=== PATIENT | female | born 1955 | race Caucasian/White ===

== ENCOUNTER 2018-01-09 10:12 | Outpatient (CLI) | payer MEDICARE, BC ==
[~2018-01-09] VITALS: Ht 149.9 cm; Wt 68.9 kg
[2018-01-09 10:46] LABS: TOTAL HEMOGLOBIN 15.3 G/dl (12.0-16.0)
[2018-01-09] MEDS ORDERED: albuterol 2.5 MG/3 ML nebule NEB PRN (11:00)
== END 2018-01-09 23:59 | disposition home or self-care (01) ==
LOC: RT 10:12
PROVIDERS: ATTEND Internal Medicine Pulmonary Disease
DX: J44.9 Chronic obstructive pulmonary disease, unspecified (principal); F17.200 Nicotine dependence, unspecified, uncomplicated; Z79.899 Other long term (current) drug therapy
CPT/HCPCS: 85018; 94060; 94640; 94727; 94729; 94760

== ENCOUNTER 2018-04-17 00:30 | Inpatient (IN) | payer MEDICARE, BC ==
[~2018-04-17] VITALS: Ht 152.4 cm; Wt 67.1 kg
[2018-04-17] VITALS (22 sets, daily range): BP systolic 102–147; BP diastolic 70–98
[2018-04-17] MEDS ORDERED: acetaminophen 650mg rectal suppository RC PRN (02:20)
[2018-04-17] MEDS ORDERED: ondansetron/PF 4mg/2ml inj IV PRN (02:20)
[2018-04-17] MEDS ORDERED: potassium Cl 40MEQ/250ML bag 250 ML IV PRN (02:20)
[2018-04-17] MEDS: normal saline 1000ml 1,000 ML IV SCH ×3 (02:30→19:36)
[2018-04-17 02:36] LABS: ABG BASE EXCESS -6.8 mmol/L (-2.0-3.0); ABG HCO3 20.7 mmol/L (22.0-26.0); ABG OXYGEN SATURATION 97.9 % (95-98); ABG PCO2 (T) 47.4 mmHg (32.0-45.0); ABG PH (T) 7.253 (7.350-7.450); ABG PO2 (T) 127.4 mmHg (83-108); ALLEN'S TEST Positive; FCOHb 0.3 % (0.5-1.5); FMetHb 0.2 % (0.3-1.12); FO2Hb 97.4 % (94-100); MINUTE VOLUME 7 L/min; PEEP 5 cm H2O; RESPIRATORY RATE 16 b/min; RESPIRATORY RATE (OBSERVED) 16 b/min; TIDAL VOLUME 400 mL; TOTAL HEMOGLOBIN 12.5 G/dl (12.0-16.0)
[2018-04-17] MEDS: ipratropium/albuterol 3ml nebule NEB SCH ×6 (03:00→23:06)
[2018-04-17] MEDS: midazolam 100mg in NS 100ml 100 ML IV PRN (03:27)
[2018-04-17] MEDS: FENTANYL-0.9 % NACL/PF 100 ML IV PRN (03:27)
[2018-04-17 03:40] LABS: BASOPHILS % (AUTO) 0 % (0-1); EOSINOPHILS # (AUTO) 0.2 X10'3 (0-0.9); EOSINOPHILS % (AUTO) 0.7 % (0-6); HEMATOCRIT 33.3 % (35.0-45.0); HEMOGLOBIN 11.1 g/dl (12.0-16.0); LYMPHOCYTES # (AUTO) 0.5 X10'3 (1.1-4.8); LYMPHOCYTES % (AUTO) 2.1 % (21-51); MEAN CORPUSCULAR HEMOGLOBIN 30.4 PG (27.0-31.0); MEAN CORPUSCULAR HGB CONC 33.3 % (33.0-36.5); MEAN CORPUSCULAR VOLUME 91.1 FL (78-98); MEAN PLATELET VOLUME 6.3 FL (7.4-10.4); MONOCYTES % (AUTO) 4.1 % (2-12); NEUTROPHILS # (AUTO) 22.1 X10'3 (1.8-7.7); NEUTROPHILS % (AUTO) 93.1 % (42-75); PLATELET COUNT 368 X10'3 (140-440); RED BLOOD COUNT 3.66 X10'6 (4.20-5.60); RED CELL DISTRIBUTION WIDTH 14.9 % (11.5-14.5); WHITE BLOOD COUNT 23.8 X10'3 (4.5-11.0)
[2018-04-17 03:47] LABS: PROTHROMBIN TIME 11.2 SECONDS (9.0-12.0)
[2018-04-17 03:48] LABS: INR 1.1 INR; PARTIAL THROMBOPLASTIN TIME 36 SECONDS (22-32)
[2018-04-17 03:52] LABS: ALANINE AMINOTRANSFERASE 39 U/L (12-78); ALBUMIN 2.4 G/DL (3.4-5.0); ALBUMIN/GLOBULIN RATIO 0.7 (1.1-1.5); ALKALINE PHOSPHATASE 130 IU/L (46-116); ANION GAP 10 (8-16); ASPARTATE AMINO TRANSFERASE 27 U/L (10-37); BILIRUBIN,TOTAL 0.5 MG/DL (0.1-1.0); BLOOD UREA NITROGEN 11 MG/DL (7-18); BUN/CREATININE RATIO 12.5 (6.6-38.0); CALCIUM 8.3 MG/DL (8.5-10.1); CHLORIDE 98 MMOL/L (99-107); CREATININE 0.88 MG/DL (0.40-0.90); GLUCOSE 130 MG/DL (70-104); MAGNESIUM 1.5 MG/DL (1.5-2.4); POTASSIUM 3.8 MMOL/L (3.5-5.1); SODIUM 133 MMOL/L (135-145); TOTAL CARBON DIOXIDE 25.3 MMOL/L (24-32); TOTAL PROTEIN 5.8 G/DL (6.4-8.2); eGFR 65 ML/MIN
[2018-04-17 04:50] LABS: CLARITY,URINE CLEAR (Clear); COLOR,URINE YELLOW (Yellow); GLUCOSE, URINE 100 mg/dl (Neg); KETONES,URINE TRACE mg/dl (Neg); LEUKOCYTE ESTERASE ,URINE NEGATIVE (Neg); NITRITES, URINE NEGATIVE (Neg); OCCULT BLOOD,URINE SMALL (Neg); PROTEIN,URINE TRACE mg/dl (Neg); UROBILINOGEN,URINE 0.2 E.U/dL (0.2-1.0)
[2018-04-17 05:02] LABS: UA COLLECTION TYPE FOLEY CATH
[2018-04-17 05:04] LABS: BACTERIA,URINE FEW /HPF (Neg); MUCUS STRANDS NONE SEEN /LPF (Neg); SQUAMOUS EPITHELIAL CELL,UR MANY /LPF (FEW)
[2018-04-17 05:05] LABS: TRANSITIONAL EPI CELLS,URINE FEW /HPF
[2018-04-17 05:10] LABS: PLATELET ESTIMATE NORMAL; TOTAL CELLS COUNTED 100; TOXIC GRANULATION 2+
[2018-04-17] MEDS ORDERED: GABA-534 PO (05:27)
[2018-04-17] MEDS ORDERED: VALA100027 PO (05:27)
[2018-04-17] MEDS ORDERED: LIDO700A47 TD (05:27)
[2018-04-17] MEDS ORDERED: FURO40TA4 PO (05:27)
[2018-04-17] MEDS ORDERED: ALBUTEROL IH (05:27)
[2018-04-17] MEDS ORDERED: IRBE75TA30 PO (05:27)
[2018-04-17] MEDS ORDERED: OMEP20TA23 PO (05:27)
[2018-04-17] MEDS ORDERED: MELO-102 PO (05:27)
[2018-04-17] MEDS ORDERED: ONDA4FIL5 PO (05:27)
[2018-04-17] MEDS ORDERED: AMIT-189 PO (05:27)
[2018-04-17] MEDS ORDERED: DULO-31 PO (05:27)
[2018-04-17] MEDS ORDERED: DIAZ5TAB4 PO (05:27)
[2018-04-17] MEDS ORDERED: POTA10TA19 PO (05:27)
[2018-04-17] MEDS ORDERED: levoFLOXACIN-Levaquin 750MG/D5 150 ML IV SCH (08:00)
[2018-04-17] MEDS: K, MAG and/or Phos replacement - Verify level? MC SCH (08:00)
[2018-04-17] MEDS ORDERED: docusate sod 100mg capsule PO SCH (08:00)
[2018-04-17] MEDS ORDERED: docusate sodium 100mg/10ml UD cup PO SCH (08:00)
[2018-04-17] MEDS: losartan 25mg tablet PO SCH (09:58)
[2018-04-17] MEDS: pantoprazole 40 MG vial IV SCH (09:58)
[2018-04-17] MEDS: furosemide 40mg tablet PO SCH ×2 (09:58→12:27)
[2018-04-17] MEDS: enoxaparin 40mg/0.4ml syringe SUBCUT SCH (09:59)
[2018-04-17] MEDS: folic acid inj. 2 MG, thiamine inj. 100 MG, MVI, adult No.4 with vit. K 10 ML in dextro... IV SCH ×4 (12:27)
[2018-04-17] MEDS: methylPREDNISolone sod succ 125mg/2ml vial IV SCH ×2 (12:27→19:36)
[2018-04-17] MEDS: docusate sodium 100mg/10ml UD cup PO SCH (19:36)
[2018-04-18] VITALS (24 sets, daily range): BP systolic 118–144; BP diastolic 70–90
[2018-04-18] MEDS: normal saline 1000ml 1,000 ML IV SCH ×3 (02:52→18:27)
[2018-04-18] MEDS: methylPREDNISolone sod succ 125mg/2ml vial IV SCH ×4 (02:53→20:55)
[2018-04-18] MEDS: ipratropium/albuterol 3ml nebule NEB SCH ×6 (03:25→22:41)
[2018-04-18 03:44] LABS: BASOPHILS % (AUTO) 0 % (0-1); EOSINOPHILS # (AUTO) 0.1 X10'3 (0-0.9); EOSINOPHILS % (AUTO) 1.3 % (0-6); HEMOGLOBIN 9.1 g/dl (12.0-16.0); LYMPHOCYTES # (AUTO) 0.5 X10'3 (1.1-4.8); LYMPHOCYTES % (AUTO) 5.1 % (21-51); MEAN CORPUSCULAR HEMOGLOBIN 30.5 PG (27.0-31.0); MEAN CORPUSCULAR HGB CONC 33.5 % (33.0-36.5); MEAN PLATELET VOLUME 5.9 FL (7.4-10.4); MONOCYTES # (AUTO) 0.2 X10'3 (0-0.9); MONOCYTES % (AUTO) 2.3 % (2-12); NEUTROPHILS # (AUTO) 9.1 X10'3 (1.8-7.7); NEUTROPHILS % (AUTO) 91.3 % (42-75); PLATELET COUNT 348 X10'3 (140-440); RED BLOOD COUNT 2.97 X10'6 (4.20-5.60); RED CELL DISTRIBUTION WIDTH 15.1 % (11.5-14.5)
[2018-04-18 03:55] LABS: ABG BASE EXCESS -2.1 mmol/L (-2.0-3.0); ABG HCO3 20.7 mmol/L (22.0-26.0); ABG OXYGEN SATURATION 94.5 % (95-98); ABG PH (T) 7.485 (7.350-7.450); ABG PO2 (T) 72.7 mmHg (83-108); ALLEN'S TEST Positive; FCOHb 0.3 % (0.5-1.5); FMetHb 0.1 % (0.3-1.12); FO2Hb 94.1 % (94-100); MINUTE VOLUME 8 L/min; PATIENT TEMPERATURE 36.4; PEEP 5 cm H2O; RESPIRATORY RATE 18 b/min; RESPIRATORY RATE (OBSERVED) 20 b/min; TIDAL VOLUME 400 mL; TOTAL HEMOGLOBIN 10.2 G/dl (12.0-16.0)
[2018-04-18 03:59] LABS: ALANINE AMINOTRANSFERASE 30 U/L (12-78); ALBUMIN 1.9 G/DL (3.4-5.0); ALBUMIN/GLOBULIN RATIO 0.6 (1.1-1.5); ALKALINE PHOSPHATASE 112 IU/L (46-116); ANION GAP 12 (8-16); ASPARTATE AMINO TRANSFERASE 24 U/L (10-37); BILIRUBIN,TOTAL 0.4 MG/DL (0.1-1.0); BLOOD UREA NITROGEN 12 MG/DL (7-18); BUN/CREATININE RATIO 14.6 (6.6-38.0); CALCIUM 8.3 MG/DL (8.5-10.1); CHLORIDE 100 MMOL/L (99-107); CREATININE 0.82 MG/DL (0.40-0.90); GLUCOSE 156 MG/DL (70-104); MAGNESIUM 1.1 MG/DL (1.5-2.4); PHOSPHORUS 1.7 MG/DL (2.3-4.5); SODIUM 136 MMOL/L (135-145); TOTAL CARBON DIOXIDE 24.4 MMOL/L (24-32); TOTAL PROTEIN 4.9 G/DL (6.4-8.2); eGFR 71 ML/MIN
[2018-04-18 04:28] LABS: POTASSIUM 2.3 MMOL/L (3.5-5.1)
[2018-04-18 04:29] LABS: INR 1.1 INR; PARTIAL THROMBOPLASTIN TIME 34 SECONDS (22-32); PROTHROMBIN TIME 10.7 SECONDS (9.0-12.0)
[2018-04-18] MEDS: potassium Cl 40MEQ/250ML bag 250 ML IV PRN ×4 (05:08→17:10)
[2018-04-18] MEDS: FENTANYL-0.9 % NACL/PF 100 ML IV PRN ×2 (05:08→22:11)
[2018-04-18] MEDS: CefTRIAXone/D5W-Rocephin 1gm 50 ML IV SCH (07:31)
[2018-04-18] MEDS: losartan 25mg tablet PO SCH (07:31)
[2018-04-18] MEDS: mineral oil/petrolatum ophthal oint EACHEYE SCH ×3 (07:31→20:55)
[2018-04-18] MEDS: furosemide 40mg tablet PO SCH ×2 (07:31→13:41)
[2018-04-18] MEDS: docusate sodium 100mg/10ml UD cup PO SCH ×2 (07:31→20:54)
[2018-04-18] MEDS: azithromycin/NS 500mg/250ml 250 ML IV SCH (07:31)
[2018-04-18] MEDS: pantoprazole 40 MG vial IV SCH (07:31)
[2018-04-18] MEDS: folic acid inj. 2 MG, thiamine inj. 100 MG, MVI, adult No.4 with vit. K 10 ML in dextro... IV SCH ×4 (07:31)
[2018-04-18] MEDS: enoxaparin 40mg/0.4ml syringe SUBCUT SCH (07:32)
[2018-04-18] MEDS: K, MAG and/or Phos replacement - Verify level? MC SCH (08:00)
[2018-04-18] MEDS: midazolam 100mg in NS 100ml 100 ML IV PRN (08:07)
[2018-04-18] MEDS: dexmedetomidin/NS 400mcg/100ml 100 ML IV SCH ×2 (09:54→22:12)
[2018-04-18] MEDS ORDERED: chlordiazePOXIDE 25mg capsule OGT PRN (10:20)
[2018-04-18 10:21] LABS: PREALBUMIN 12.7 MG/DL (19-36)
[2018-04-18] MEDS: nystatin 15 GM powder TP SCH ×2 (13:41→20:55)
[2018-04-18] MEDS ORDERED: dextrose 50%-water 50ml dispensing syringe IV PRN ×2 (14:35)
[2018-04-18] MEDS ORDERED: dextrose ORAL solution 15 GM/59 ML bottle PO PRN ×2 (14:35)
[2018-04-18] MEDS ORDERED: glucagon, human recombinant 1mg kit SUBCUT PRN (14:35)
[2018-04-18] MEDS: lactobacillus rhamnosus 10,000 MMU CELLS/CAPSULE PO SCH (20:55)
[2018-04-18] MEDS: insulin regular, human vial - multi-dose SQ SCH (20:59)
[2018-04-19] VITALS (25 sets, daily range): BP systolic 140–168; BP diastolic 82–108
[2018-04-19] MEDS: mineral oil/petrolatum ophthal oint EACHEYE SCH ×4 (02:47→20:53)
[2018-04-19] MEDS: methylPREDNISolone sod succ 125mg/2ml vial IV SCH ×2 (02:47→08:05)
[2018-04-19] MEDS: insulin regular, human vial - multi-dose SQ SCH ×4 (02:50→21:01)
[2018-04-19] MEDS: ipratropium/albuterol 3ml nebule NEB SCH ×6 (02:52→22:33)
[2018-04-19] MEDS: normal saline 1000ml 1,000 ML IV SCH ×2 (03:05→10:27)
[2018-04-19 03:31] LABS: ABG BASE EXCESS -4.2 mmol/L (-2.0-3.0); ABG HCO3 19.8 mmol/L (22.0-26.0); ABG PCO2 (T) 33.3 mmHg (32.0-45.0); ABG PH (T) 7.395 (7.350-7.450); ABG PO2 (T) 91.4 mmHg (83-108); ALLEN'S TEST Positive; FCOHb 0.3 % (0.5-1.5); FMetHb 0.3 % (0.3-1.12); FO2Hb 95.4 % (94-100); MINUTE VOLUME 8 L/min; PATIENT TEMPERATURE 37.4; PEEP 5 cm H2O; RESPIRATORY RATE 16 b/min; RESPIRATORY RATE (OBSERVED) 19 b/min; TIDAL VOLUME 400 mL; TOTAL HEMOGLOBIN 10.8 G/dl (12.0-16.0)
[2018-04-19 05:10] LABS: BASOPHILS % (AUTO) 0 % (0-1); EOSINOPHILS % (AUTO) 0 % (0-6); HEMATOCRIT 28.9 % (35.0-45.0); HEMOGLOBIN 9.7 g/dl (12.0-16.0); LYMPHOCYTES # (AUTO) 0.4 X10'3 (1.1-4.8); LYMPHOCYTES % (AUTO) 4.3 % (21-51); MEAN CORPUSCULAR HEMOGLOBIN 30.6 PG (27.0-31.0); MEAN CORPUSCULAR HGB CONC 33.5 % (33.0-36.5); MEAN CORPUSCULAR VOLUME 91.4 FL (78-98); MEAN PLATELET VOLUME 6.4 FL (7.4-10.4); MONOCYTES # (AUTO) 0.3 X10'3 (0-0.9); MONOCYTES % (AUTO) 2.5 % (2-12); NEUTROPHILS # (AUTO) 9.3 X10'3 (1.8-7.7); NEUTROPHILS % (AUTO) 93.2 % (42-75); PLATELET COUNT 373 X10'3 (140-440); RED BLOOD COUNT 3.16 X10'6 (4.20-5.60); RED CELL DISTRIBUTION WIDTH 15.7 % (11.5-14.5)
[2018-04-19] MEDS: midazolam 100mg in NS 100ml 100 ML IV PRN (05:31)
[2018-04-19 05:37] LABS: INR 1.1 INR; PARTIAL THROMBOPLASTIN TIME 27 SECONDS (22-32); PROTHROMBIN TIME 10.8 SECONDS (9.0-12.0)
[2018-04-19 05:43] LABS: ALANINE AMINOTRANSFERASE 34 U/L (12-78); ALBUMIN 2.2 G/DL (3.4-5.0); ALBUMIN/GLOBULIN RATIO 0.6 (1.1-1.5); ALKALINE PHOSPHATASE 114 IU/L (46-116); ANION GAP 15 (8-16); ASPARTATE AMINO TRANSFERASE 23 U/L (10-37); BILIRUBIN,TOTAL 0.4 MG/DL (0.1-1.0); BLOOD UREA NITROGEN 15 MG/DL (7-18); BUN/CREATININE RATIO 16.9 (6.6-38.0); CALCIUM 8.4 MG/DL (8.5-10.1); CHLORIDE 103 MMOL/L (99-107); CREATININE 0.89 MG/DL (0.40-0.90); GLUCOSE 168 MG/DL (70-104); PHOSPHORUS 2.4 MG/DL (2.3-4.5); POTASSIUM 3.9 MMOL/L (3.5-5.1); SODIUM 140 MMOL/L (135-145); TOTAL CARBON DIOXIDE 22.1 MMOL/L (24-32); TOTAL PROTEIN 5.6 G/DL (6.4-8.2); eGFR 64 ML/MIN
[2018-04-19] MEDS: FENTANYL-0.9 % NACL/PF 100 ML IV PRN (07:18)
[2018-04-19] MEDS: dexmedetomidin/NS 400mcg/100ml 100 ML IV SCH ×2 (07:19→16:17)
[2018-04-19] MEDS: K, MAG and/or Phos replacement - Verify level? MC SCH (08:00)
[2018-04-19] MEDS: enoxaparin 40mg/0.4ml syringe SUBCUT SCH (08:03)
[2018-04-19] MEDS: pantoprazole 40 MG vial IV SCH (08:03)
[2018-04-19] MEDS: lactobacillus rhamnosus 10,000 MMU CELLS/CAPSULE PO SCH ×2 (08:04→20:53)
[2018-04-19] MEDS: azithromycin/NS 500mg/250ml 250 ML IV SCH (08:04)
[2018-04-19] MEDS: CefTRIAXone/D5W-Rocephin 1gm 50 ML IV SCH (08:05)
[2018-04-19] MEDS: furosemide 40mg tablet PO SCH ×2 (08:06→12:36)
[2018-04-19] MEDS: losartan 25mg tablet PO SCH (08:06)
[2018-04-19] MEDS: docusate sodium 100mg/10ml UD cup PO SCH ×2 (08:13→20:53)
[2018-04-19] MEDS: nystatin 15 GM powder TP SCH ×3 (08:27→20:53)
[2018-04-19] MEDS ORDERED: magnesium 4gm in 100ml NS 100 ML IV ONE (09:20)
[2018-04-19] MEDS: chlordiazePOXIDE 25mg capsule OGT SCH ×2 (10:24→15:54)
[2018-04-19] MEDS: folic acid inj. 2 MG, thiamine inj. 100 MG, MVI, adult No.4 with vit. K 10 ML in dextro... IV SCH ×4 (10:26)
[2018-04-19] MEDS: methylPREDNISolone sod succ/PF 40mg inj. IV SCH ×2 (14:20→20:53)
[2018-04-19] MEDS: insulin glargine (Lantus) pen - multi-dose SQ SCH (21:02)
[2018-04-20] VITALS (24 sets, daily range): BP systolic 125–179; BP diastolic 82–103
[2018-04-20] MEDS: chlordiazePOXIDE 25mg capsule OGT SCH ×3 (00:12→16:39)
[2018-04-20] MEDS: mineral oil/petrolatum ophthal oint EACHEYE SCH ×4 (02:16→19:32)
[2018-04-20] MEDS: methylPREDNISolone sod succ/PF 40mg inj. IV SCH ×4 (02:16→19:32)
[2018-04-20] MEDS: insulin regular, human vial - multi-dose SQ SCH ×2 (02:19→09:15)
[2018-04-20] MEDS: dexmedetomidin/NS 400mcg/100ml 100 ML IV SCH ×2 (02:21→15:54)
[2018-04-20] MEDS: ipratropium/albuterol 3ml nebule NEB SCH ×4 (02:37→20:03)
[2018-04-20 03:16] LABS: ABG HCO3 21.7 mmol/L (22.0-26.0); ABG PCO2 (T) 29.8 mmHg (32.0-45.0); ABG PH (T) 7.481 (7.350-7.450); ABG PO2 (T) 81.2 mmHg (83-108); ALLEN'S TEST Positive; FCOHb 0.3 % (0.5-1.5); FMetHb 0.1 % (0.3-1.12); FO2Hb 94.6 % (94-100); MINUTE VOLUME 7 L/min; PATIENT TEMPERATURE 37.4; PEEP 5 cm H2O; RESPIRATORY RATE 0 b/min; RESPIRATORY RATE (OBSERVED) 16 b/min; TIDAL VOLUME 461 mL; TOTAL HEMOGLOBIN 10.5 G/dl (12.0-16.0)
[2018-04-20 04:10] LABS: BASOPHILS % (AUTO) 0 % (0-1); EOSINOPHILS # (AUTO) 0.2 X10'3 (0-0.9); EOSINOPHILS % (AUTO) 1.3 % (0-6); HEMATOCRIT 28.7 % (35.0-45.0); HEMOGLOBIN 9.5 g/dl (12.0-16.0); LYMPHOCYTES # (AUTO) 0.7 X10'3 (1.1-4.8); LYMPHOCYTES % (AUTO) 5.1 % (21-51); MEAN CORPUSCULAR HEMOGLOBIN 30.3 PG (27.0-31.0); MEAN CORPUSCULAR HGB CONC 33.1 % (33.0-36.5); MEAN CORPUSCULAR VOLUME 91.6 FL (78-98); MEAN PLATELET VOLUME 6.1 FL (7.4-10.4); MONOCYTES # (AUTO) 0.4 X10'3 (0-0.9); MONOCYTES % (AUTO) 2.9 % (2-12); NEUTROPHILS # (AUTO) 13.2 X10'3 (1.8-7.7); NEUTROPHILS % (AUTO) 90.7 % (42-75); PLATELET COUNT 333 X10'3 (140-440); RED BLOOD COUNT 3.13 X10'6 (4.20-5.60); RED CELL DISTRIBUTION WIDTH 15.4 % (11.5-14.5); WHITE BLOOD COUNT 14.5 X10'3 (4.5-11.0)
[2018-04-20 04:24] LABS: ALANINE AMINOTRANSFERASE 33 U/L (12-78); ALBUMIN 2.3 G/DL (3.4-5.0); ALBUMIN/GLOBULIN RATIO 0.7 (1.1-1.5); ALKALINE PHOSPHATASE 102 IU/L (46-116); ANION GAP 12 (8-16); ASPARTATE AMINO TRANSFERASE 19 U/L (10-37); BILIRUBIN,TOTAL 0.4 MG/DL (0.1-1.0); BLOOD UREA NITROGEN 26 MG/DL (7-18); BUN/CREATININE RATIO 30.2 (6.6-38.0); CALCIUM 8.9 MG/DL (8.5-10.1); CHLORIDE 100 MMOL/L (99-107); CREATININE 0.86 MG/DL (0.40-0.90); GLUCOSE 203 MG/DL (70-104); MAGNESIUM 1.4 MG/DL (1.5-2.4); SODIUM 139 MMOL/L (135-145); TOTAL CARBON DIOXIDE 27.3 MMOL/L (24-32); TOTAL PROTEIN 5.6 G/DL (6.4-8.2); eGFR 67 ML/MIN
[2018-04-20 04:32] LABS: POTASSIUM 2.3 MMOL/L (3.5-5.1)
[2018-04-20 04:35] LABS: INR 1.1 INR; PARTIAL THROMBOPLASTIN TIME 23 SECONDS (22-32); PROTHROMBIN TIME 10.7 SECONDS (9.0-12.0)
[2018-04-20] MEDS: potassium Cl 40MEQ/250ML bag 250 ML IV PRN ×4 (04:52→17:44)
[2018-04-20] MEDS: normal saline 1000ml 1,000 ML IV SCH (05:00)
[2018-04-20] MEDS: FENTANYL-0.9 % NACL/PF 100 ML IV PRN (07:35)
[2018-04-20] MEDS: docusate sodium 100mg/10ml UD cup PO SCH ×2 (07:50→20:00)
[2018-04-20] MEDS: pantoprazole 40 MG vial IV SCH (07:50)
[2018-04-20] MEDS: furosemide 40mg tablet PO SCH ×2 (07:50→12:30)
[2018-04-20] MEDS: enoxaparin 40mg/0.4ml syringe SUBCUT SCH (07:51)
[2018-04-20] MEDS: lactobacillus rhamnosus 10,000 MMU CELLS/CAPSULE PO SCH ×2 (07:51→20:00)
[2018-04-20] MEDS: losartan 25mg tablet PO SCH (07:51)
[2018-04-20] MEDS: CefTRIAXone/D5W-Rocephin 1gm 50 ML IV SCH (07:51)
[2018-04-20] MEDS: azithromycin/NS 500mg/250ml 250 ML IV SCH (07:51)
[2018-04-20] MEDS: nystatin 15 GM powder TP SCH ×3 (07:54→21:46)
[2018-04-20] MEDS: K, MAG and/or Phos replacement - Verify level? MC SCH (08:00)
[2018-04-20] MEDS ORDERED: ipratropium/albuterol 3ml nebule NEB PRN (10:05)
[2018-04-20] MEDS ORDERED: racepinephrine 11.25mg/0.5ml nebule NEB PRN (10:05)
[2018-04-20] MEDS: folic acid inj. 2 MG, thiamine inj. 100 MG, MVI, adult No.4 with vit. K 10 ML in dextro... IV SCH ×4 (10:15)
[2018-04-20] MEDS: potassium Cl oral solution 20 MEQ/15 ML PO SCH ×2 (14:00→20:00)
[2018-04-20] MEDS: LORazepam 2 mg/ml vial IV PRN (20:37)
[2018-04-20] MEDS: HYDROmorphone 1 mg/ml syringe IV PRN (21:46)
[2018-04-20] MEDS: insulin glargine (Lantus) pen - multi-dose SQ SCH (21:52)
[2018-04-21] VITALS (24 sets, daily range): BP systolic 118–152; BP diastolic 71–93
[2018-04-21] MEDS: mineral oil/petrolatum ophthal oint EACHEYE SCH ×2 (00:19→07:52)
[2018-04-21] MEDS: potassium Cl oral solution 20 MEQ/15 ML PO SCH ×4 (02:00→20:00)
[2018-04-21] MEDS: normal saline 1000ml 1,000 ML IV SCH ×2 (02:14→21:00)
[2018-04-21] MEDS: methylPREDNISolone sod succ/PF 40mg inj. IV SCH ×4 (02:14→20:00)
[2018-04-21] MEDS: ipratropium/albuterol 3ml nebule NEB SCH ×4 (02:34→20:58)
[2018-04-21 03:02] LABS: BASOPHILS % (AUTO) 0.2 % (0-1); EOSINOPHILS # (AUTO) 0.1 X10'3 (0-0.9); EOSINOPHILS % (AUTO) 1.1 % (0-6); HEMATOCRIT 29.4 % (35.0-45.0); HEMOGLOBIN 9.7 g/dl (12.0-16.0); LYMPHOCYTES # (AUTO) 0.7 X10'3 (1.1-4.8); LYMPHOCYTES % (AUTO) 5.2 % (21-51); MEAN CORPUSCULAR HEMOGLOBIN 30.7 PG (27.0-31.0); MEAN CORPUSCULAR HGB CONC 33.1 % (33.0-36.5); MEAN CORPUSCULAR VOLUME 92.7 FL (78-98); MEAN PLATELET VOLUME 5.9 FL (7.4-10.4); MONOCYTES # (AUTO) 0.2 X10'3 (0-0.9); MONOCYTES % (AUTO) 1.8 % (2-12); NEUTROPHILS # (AUTO) 12.3 X10'3 (1.8-7.7); NEUTROPHILS % (AUTO) 91.7 % (42-75); PLATELET COUNT 284 X10'3 (140-440); RED BLOOD COUNT 3.17 X10'6 (4.20-5.60); WHITE BLOOD COUNT 13.4 X10'3 (4.5-11.0)
[2018-04-21 03:11] LABS: ALANINE AMINOTRANSFERASE 40 U/L (12-78); ALBUMIN 2.4 G/DL (3.4-5.0); ALBUMIN/GLOBULIN RATIO 0.8 (1.1-1.5); ALKALINE PHOSPHATASE 93 IU/L (46-116); ANION GAP 9 (8-16); ASPARTATE AMINO TRANSFERASE 25 U/L (10-37); BILIRUBIN,TOTAL 0.4 MG/DL (0.1-1.0); BLOOD UREA NITROGEN 28 MG/DL (7-18); BUN/CREATININE RATIO 38.9 (6.6-38.0); CALCIUM 8.8 MG/DL (8.5-10.1); CHLORIDE 103 MMOL/L (99-107); CREATININE 0.72 MG/DL (0.40-0.90); GLUCOSE 143 MG/DL (70-104); MAGNESIUM 1.2 MG/DL (1.5-2.4); PHOSPHORUS 3.8 MG/DL (2.3-4.5); POTASSIUM 4.6 MMOL/L (3.5-5.1); SODIUM 141 MMOL/L (135-145); TOTAL CARBON DIOXIDE 28.8 MMOL/L (24-32); TOTAL PROTEIN 5.5 G/DL (6.4-8.2); eGFR 82 ML/MIN
[2018-04-21 03:25] LABS: PROTHROMBIN TIME 11.3 SECONDS (9.0-12.0)
[2018-04-21 03:26] LABS: INR 1.1 INR; PARTIAL THROMBOPLASTIN TIME 24 SECONDS (22-32)
[2018-04-21] MEDS: HYDROmorphone 1 mg/ml syringe IV PRN ×3 (03:29→16:57)
[2018-04-21] MEDS: LORazepam 2 mg/ml vial IV PRN (07:19)
[2018-04-21] MEDS: furosemide 40mg tablet PO SCH ×2 (07:30→14:30)
[2018-04-21] MEDS: CefTRIAXone/D5W-Rocephin 1gm 50 ML IV SCH (07:51)
[2018-04-21] MEDS: pantoprazole 40 MG vial IV SCH (07:51)
[2018-04-21] MEDS: enoxaparin 40mg/0.4ml syringe SUBCUT SCH (07:52)
[2018-04-21] MEDS: chlordiazePOXIDE 25mg capsule OGT SCH ×4 (08:00→23:52)
[2018-04-21] MEDS: K, MAG and/or Phos replacement - Verify level? MC SCH (08:39)
[2018-04-21] MEDS: azithromycin/NS 500mg/250ml 250 ML IV SCH (08:42)
[2018-04-21] MEDS: folic acid inj. 2 MG, thiamine inj. 100 MG, MVI, adult No.4 with vit. K 10 ML in dextro... IV SCH ×4 (09:52)
[2018-04-21] MEDS: nystatin 15 GM powder TP SCH ×3 (09:52→21:00)
[2018-04-21] MEDS: lactobacillus rhamnosus 10,000 MMU CELLS/CAPSULE PO SCH ×2 (14:30→20:00)
[2018-04-21] MEDS: docusate sodium 100mg/10ml UD cup PO SCH ×2 (14:30→20:00)
[2018-04-21] MEDS: losartan 25mg tablet PO SCH (14:31)
[2018-04-21] MEDS: insulin glargine (Lantus) pen - multi-dose SQ SCH (21:00)
[2018-04-22] VITALS (24 sets, daily range): BP systolic 108–162; BP diastolic 59–97
[2018-04-22] MEDS: methylPREDNISolone sod succ/PF 40mg inj. IV SCH ×3 (01:36→20:04)
[2018-04-22] MEDS: potassium Cl oral solution 20 MEQ/15 ML PO SCH ×4 (01:36→20:04)
[2018-04-22] MEDS: HYDROmorphone 1 mg/ml syringe IV PRN ×3 (01:37→18:50)
[2018-04-22] MEDS: ipratropium/albuterol 3ml nebule NEB SCH ×4 (02:53→20:38)
[2018-04-22 05:25] LABS: BASOPHILS % (AUTO) 0 % (0-1); EOSINOPHILS % (AUTO) 0 % (0-6); HEMATOCRIT 29.5 % (35.0-45.0); HEMOGLOBIN 9.6 g/dl (12.0-16.0); LYMPHOCYTES # (AUTO) 0.6 X10'3 (1.1-4.8); LYMPHOCYTES % (AUTO) 5.1 % (21-51); MEAN CORPUSCULAR HEMOGLOBIN 30.3 PG (27.0-31.0); MEAN CORPUSCULAR HGB CONC 32.6 % (33.0-36.5); MEAN CORPUSCULAR VOLUME 93.1 FL (78-98); MEAN PLATELET VOLUME 6.8 FL (7.4-10.4); MONOCYTES # (AUTO) 0.3 X10'3 (0-0.9); MONOCYTES % (AUTO) 2.3 % (2-12); NEUTROPHILS % (AUTO) 92.6 % (42-75); PLATELET COUNT 303 X10'3 (140-440); RED BLOOD COUNT 3.17 X10'6 (4.20-5.60); RED CELL DISTRIBUTION WIDTH 15.6 % (11.5-14.5); WHITE BLOOD COUNT 11.8 X10'3 (4.5-11.0)
[2018-04-22 05:39] LABS: ALANINE AMINOTRANSFERASE 79 U/L (12-78); ALBUMIN 2.5 G/DL (3.4-5.0); ALBUMIN/GLOBULIN RATIO 0.9 (1.1-1.5); ALKALINE PHOSPHATASE 97 IU/L (46-116); ANION GAP 10 (8-16); ASPARTATE AMINO TRANSFERASE 52 U/L (10-37); BILIRUBIN,TOTAL 0.5 MG/DL (0.1-1.0); BLOOD UREA NITROGEN 25 MG/DL (7-18); BUN/CREATININE RATIO 34.2 (6.6-38.0); CALCIUM 8.4 MG/DL (8.5-10.1); CHLORIDE 103 MMOL/L (99-107); CREATININE 0.73 MG/DL (0.40-0.90); GLUCOSE 135 MG/DL (70-104); MAGNESIUM 1.1 MG/DL (1.5-2.4); PHOSPHORUS 3.9 MG/DL (2.3-4.5); POTASSIUM 4.5 MMOL/L (3.5-5.1); SODIUM 142 MMOL/L (135-145); TOTAL CARBON DIOXIDE 29.3 MMOL/L (24-32); TOTAL PROTEIN 5.4 G/DL (6.4-8.2); eGFR 81 ML/MIN
[2018-04-22] MEDS: docusate sodium 100mg/10ml UD cup PO SCH ×2 (07:36→20:04)
[2018-04-22] MEDS: chlordiazePOXIDE 25mg capsule OGT SCH ×3 (07:36→23:42)
[2018-04-22] MEDS: lactobacillus rhamnosus 10,000 MMU CELLS/CAPSULE PO SCH ×2 (07:36→20:04)
[2018-04-22] MEDS: furosemide 40mg tablet PO SCH ×2 (07:36→12:01)
[2018-04-22] MEDS: losartan 25mg tablet PO SCH (07:36)
[2018-04-22] MEDS: nystatin 15 GM powder TP SCH ×3 (07:37→21:45)
[2018-04-22] MEDS: pantoprazole 40 MG vial IV SCH (07:37)
[2018-04-22] MEDS: enoxaparin 40mg/0.4ml syringe SUBCUT SCH (07:37)
[2018-04-22] MEDS: K, MAG and/or Phos replacement - Verify level? MC SCH (07:38)
[2018-04-22] MEDS: folic acid inj. 2 MG, thiamine inj. 100 MG, MVI, adult No.4 with vit. K 10 ML in dextro... IV SCH ×4 (07:43)
[2018-04-22] MEDS ORDERED: potassium Cl 20 mEq SR tablet PO PRN ×3 (08:50→10:45)
[2018-04-22] MEDS ORDERED: magnesium Cl slow-release 64mg tablet PO PRN (10:45)
[2018-04-22] MEDS ORDERED: magnesium 1gm/100ml D5W IVPB 100 ML IV PRN (10:45)
[2018-04-22] MEDS ORDERED: potassium Cl 40MEQ/NS 500ml 500 ML IV PRN ×2 (10:45)
[2018-04-22] MEDS: magnesium 4gm in 100ml NS 100 ML IV PRN (12:01)
[2018-04-22] MEDS: thiamine 100mg tablet PO SCH (20:04)
[2018-04-22] MEDS: insulin glargine (Lantus) pen - multi-dose SQ SCH (21:00)
[2018-04-23] VITALS (22 sets, daily range): BP systolic 115–158; BP diastolic 62–89
[2018-04-23] MEDS: potassium Cl oral solution 20 MEQ/15 ML PO SCH ×4 (02:23→20:04)
[2018-04-23] MEDS: ipratropium/albuterol 3ml nebule NEB SCH ×4 (02:51→20:26)
[2018-04-23 05:58] LABS: BASOPHILS % (AUTO) 0.1 % (0-1); EOSINOPHILS % (AUTO) 0 % (0-6); HEMATOCRIT 29.6 % (35.0-45.0); HEMOGLOBIN 9.8 g/dl (12.0-16.0); LYMPHOCYTES # (AUTO) 0.5 X10'3 (1.1-4.8); LYMPHOCYTES % (AUTO) 4.9 % (21-51); MEAN CORPUSCULAR HEMOGLOBIN 30.3 PG (27.0-31.0); MEAN CORPUSCULAR VOLUME 91.8 FL (78-98); MEAN PLATELET VOLUME 6.9 FL (7.4-10.4); MONOCYTES # (AUTO) 0.5 X10'3 (0-0.9); MONOCYTES % (AUTO) 4.6 % (2-12); NEUTROPHILS # (AUTO) 9.7 X10'3 (1.8-7.7); NEUTROPHILS % (AUTO) 90.4 % (42-75); PLATELET COUNT 294 X10'3 (140-440); RED BLOOD COUNT 3.23 X10'6 (4.20-5.60); RED CELL DISTRIBUTION WIDTH 15.8 % (11.5-14.5); WHITE BLOOD COUNT 10.7 X10'3 (4.5-11.0)
[2018-04-23 06:33] LABS: ALANINE AMINOTRANSFERASE 82 U/L (12-78); ALBUMIN 2.5 G/DL (3.4-5.0); ALBUMIN/GLOBULIN RATIO 0.9 (1.1-1.5); ALKALINE PHOSPHATASE 104 IU/L (46-116); ANION GAP 4 (8-16); ASPARTATE AMINO TRANSFERASE 35 U/L (10-37); BILIRUBIN,TOTAL 0.5 MG/DL (0.1-1.0); BLOOD UREA NITROGEN 20 MG/DL (7-18); BUN/CREATININE RATIO 26.3 (6.6-38.0); CALCIUM 8.9 MG/DL (8.5-10.1); CHLORIDE 102 MMOL/L (99-107); CREATININE 0.76 MG/DL (0.40-0.90); GLUCOSE 193 MG/DL (70-104); MAGNESIUM 1.4 MG/DL (1.5-2.4); PHOSPHORUS 2.9 MG/DL (2.3-4.5); POTASSIUM 4.2 MMOL/L (3.5-5.1); SODIUM 139 MMOL/L (135-145); TOTAL CARBON DIOXIDE 32.6 MMOL/L (24-32); TOTAL PROTEIN 5.4 G/DL (6.4-8.2); eGFR 77 ML/MIN
[2018-04-23] MEDS: lactobacillus rhamnosus 10,000 MMU CELLS/CAPSULE PO SCH ×2 (07:44→20:03)
[2018-04-23] MEDS: thiamine 100mg tablet PO SCH ×2 (07:44→20:22)
[2018-04-23] MEDS: docusate sodium 100mg/10ml UD cup PO SCH ×2 (07:44→20:04)
[2018-04-23] MEDS: pantoprazole 40 MG vial IV SCH (07:44)
[2018-04-23] MEDS: losartan 25mg tablet PO SCH (07:44)
[2018-04-23] MEDS: chlordiazePOXIDE 25mg capsule OGT SCH (07:44)
[2018-04-23] MEDS: furosemide 40mg tablet PO SCH ×2 (07:44→13:33)
[2018-04-23] MEDS: folic acid/vitamin B complex w/vitamin C 0.8mg tablet PO SCH (07:44)
[2018-04-23] MEDS: methylPREDNISolone sod succ/PF 40mg inj. IV SCH ×2 (07:44→20:04)
[2018-04-23] MEDS: enoxaparin 40mg/0.4ml syringe SUBCUT SCH (07:45)
[2018-04-23] MEDS: K and/or MAG REPLACEMENT MC SCH (07:46)
[2018-04-23] MEDS ORDERED: K and/or MAG REPLACEMENT MC SCH (08:00)
[2018-04-23] MEDS: nystatin 15 GM powder TP SCH ×3 (08:02→20:13)
[2018-04-23] MEDS ORDERED: iohexol 300mg/ml 100ml inj. ONE ×2 (10:27→11:22)
[2018-04-23] MEDS: acetaminophen 325mg tablet PO PRN ×2 (13:34→20:04)
[2018-04-23] MEDS: insulin regular, human vial - multi-dose SQ SCH ×2 (15:25→20:11)
[2018-04-23] MEDS ORDERED: chlordiazePOXIDE 25mg capsule OGT PRN (16:00)
[2018-04-23] MEDS: insulin glargine (Lantus) pen - multi-dose SQ SCH (20:12)
[2018-04-24] VITALS (24 sets, daily range): BP systolic 120–160; BP diastolic 63–89
[2018-04-24] MEDS: potassium Cl oral solution 20 MEQ/15 ML PO SCH ×4 (01:35→20:29)
[2018-04-24] MEDS: insulin regular, human vial - multi-dose SQ SCH ×3 (01:43→16:16)
[2018-04-24] MEDS: ipratropium/albuterol 3ml nebule NEB SCH ×4 (02:28→20:07)
[2018-04-24 05:41] LABS: BASOPHILS % (AUTO) 0.1 % (0-1); EOSINOPHILS # (AUTO) 0.1 X10'3 (0-0.9); HEMATOCRIT 33.1 % (35.0-45.0); LYMPHOCYTES # (AUTO) 0.6 X10'3 (1.1-4.8); LYMPHOCYTES % (AUTO) 5.8 % (21-51); MEAN CORPUSCULAR HEMOGLOBIN 30.9 PG (27.0-31.0); MEAN CORPUSCULAR HGB CONC 33.3 % (33.0-36.5); MEAN CORPUSCULAR VOLUME 92.7 FL (78-98); MEAN PLATELET VOLUME 6.8 FL (7.4-10.4); MONOCYTES # (AUTO) 0.7 X10'3 (0-0.9); MONOCYTES % (AUTO) 6.9 % (2-12); NEUTROPHILS # (AUTO) 8.6 X10'3 (1.8-7.7); NEUTROPHILS % (AUTO) 86.2 % (42-75); PLATELET COUNT 334 X10'3 (140-440); RED BLOOD COUNT 3.57 X10'6 (4.20-5.60); RED CELL DISTRIBUTION WIDTH 16.1 % (11.5-14.5)
[2018-04-24 05:59] LABS: ALANINE AMINOTRANSFERASE 74 U/L (12-78); ALBUMIN 2.7 G/DL (3.4-5.0); ALBUMIN/GLOBULIN RATIO 0.9 (1.1-1.5); ALKALINE PHOSPHATASE 128 IU/L (46-116); ANION GAP 7 (8-16); ASPARTATE AMINO TRANSFERASE 22 U/L (10-37); BILIRUBIN,TOTAL 0.5 MG/DL (0.1-1.0); BLOOD UREA NITROGEN 20 MG/DL (7-18); BUN/CREATININE RATIO 24.1 (6.6-38.0); CALCIUM 9.1 MG/DL (8.5-10.1); CHLORIDE 99 MMOL/L (99-107); CREATININE 0.83 MG/DL (0.40-0.90); GLUCOSE 182 MG/DL (70-104); MAGNESIUM 1.2 MG/DL (1.5-2.4); PHOSPHORUS 3.1 MG/DL (2.3-4.5); POTASSIUM 4.4 MMOL/L (3.5-5.1); SODIUM 141 MMOL/L (135-145); TOTAL CARBON DIOXIDE 35.2 MMOL/L (24-32); TOTAL PROTEIN 5.8 G/DL (6.4-8.2); eGFR 70 ML/MIN
[2018-04-24] MEDS: magnesium 4gm in 100ml NS 100 ML IV PRN (07:31)
[2018-04-24] MEDS: losartan 25mg tablet PO SCH (07:32)
[2018-04-24] MEDS: enoxaparin 40mg/0.4ml syringe SUBCUT SCH (07:32)
[2018-04-24] MEDS: docusate sodium 100mg/10ml UD cup PO SCH ×2 (07:32→20:28)
[2018-04-24] MEDS: methylPREDNISolone sod succ/PF 40mg inj. IV SCH ×2 (07:32→20:29)
[2018-04-24] MEDS: furosemide 40mg tablet PO SCH ×2 (07:32→13:08)
[2018-04-24] MEDS: pantoprazole 40 MG vial IV SCH (07:32)
[2018-04-24] MEDS: folic acid/vitamin B complex w/vitamin C 0.8mg tablet PO SCH (07:32)
[2018-04-24] MEDS: lactobacillus rhamnosus 10,000 MMU CELLS/CAPSULE PO SCH ×2 (07:32→20:29)
[2018-04-24] MEDS: thiamine 100mg tablet PO SCH ×2 (07:32→20:29)
[2018-04-24] MEDS: nystatin 15 GM powder TP SCH ×3 (07:33→20:29)
[2018-04-24] MEDS: K and/or MAG REPLACEMENT MC SCH (08:48)
[2018-04-24] MEDS: vancomycin/NS 1 GM ADD-VANTAGE 250 ML IV SCH ×2 (11:00→23:22)
[2018-04-24] MEDS ORDERED: LORazepam 1 MG tablet PO ONE (13:45)
[2018-04-24] MEDS: insulin glargine (Lantus) pen - multi-dose SQ SCH (20:42)
[2018-04-25] VITALS (22 sets, daily range): BP systolic 102–144; BP diastolic 67–98
[2018-04-25] MEDS: potassium Cl oral solution 20 MEQ/15 ML PO SCH ×3 (01:46→14:00)
[2018-04-25] MEDS: ipratropium/albuterol 3ml nebule NEB SCH ×4 (02:34→20:21)
[2018-04-25] MEDS: K and/or MAG REPLACEMENT MC SCH (08:00)
[2018-04-25] MEDS: enoxaparin 40mg/0.4ml syringe SUBCUT SCH (08:00)
[2018-04-25] MEDS: docusate sodium 100mg/10ml UD cup PO SCH ×2 (08:16→19:30)
[2018-04-25] MEDS: losartan 25mg tablet PO SCH (08:16)
[2018-04-25] MEDS: furosemide 40mg tablet PO SCH ×2 (08:17→12:30)
[2018-04-25] MEDS: thiamine 100mg tablet PO SCH ×2 (08:17→19:30)
[2018-04-25] MEDS: lactobacillus rhamnosus 10,000 MMU CELLS/CAPSULE PO SCH ×2 (08:17→19:30)
[2018-04-25] MEDS: folic acid/vitamin B complex w/vitamin C 0.8mg tablet PO SCH (08:17)
[2018-04-25] MEDS: nystatin 15 GM powder TP SCH ×3 (08:18→20:27)
[2018-04-25 08:51] LABS: BASOPHILS % (AUTO) 0.3 % (0-1); EOSINOPHILS % (AUTO) 0.4 % (0-6); HEMOGLOBIN 13.6 g/dl (12.0-16.0); LYMPHOCYTES # (AUTO) 1.4 X10'3 (1.1-4.8); LYMPHOCYTES % (AUTO) 12.1 % (21-51); MEAN CORPUSCULAR HGB CONC 32.4 % (33.0-36.5); MEAN CORPUSCULAR VOLUME 92.7 FL (78-98); MEAN PLATELET VOLUME 6.8 FL (7.4-10.4); MONOCYTES # (AUTO) 0.8 X10'3 (0-0.9); MONOCYTES % (AUTO) 6.5 % (2-12); NEUTROPHILS # (AUTO) 9.5 X10'3 (1.8-7.7); NEUTROPHILS % (AUTO) 80.7 % (42-75); PLATELET COUNT 366 X10'3 (140-440); RED BLOOD COUNT 4.53 X10'6 (4.20-5.60); RED CELL DISTRIBUTION WIDTH 16.7 % (11.5-14.5); WHITE BLOOD COUNT 11.8 X10'3 (4.5-11.0)
[2018-04-25 09:05] LABS: ANION GAP 6 (8-16); BLOOD UREA NITROGEN 25 MG/DL (7-18); BUN/CREATININE RATIO 30.9 (6.6-38.0); CALCIUM 9.5 MG/DL (8.5-10.1); CHLORIDE 95 MMOL/L (99-107); CREATININE 0.81 MG/DL (0.40-0.90); GLUCOSE 125 MG/DL (70-104); MAGNESIUM 1.8 MG/DL (1.5-2.4); PHOSPHORUS 5.8 MG/DL (2.3-4.5); POTASSIUM 4.4 MMOL/L (3.5-5.1); SODIUM 137 MMOL/L (135-145); TOTAL CARBON DIOXIDE 35.9 MMOL/L (24-32); eGFR 72 ML/MIN
[2018-04-25 09:06] LABS: ALANINE AMINOTRANSFERASE 78 U/L (12-78); ALBUMIN 3.1 G/DL (3.4-5.0); ALBUMIN/GLOBULIN RATIO 0.9 (1.1-1.5); ALKALINE PHOSPHATASE 123 IU/L (46-116); ASPARTATE AMINO TRANSFERASE 28 U/L (10-37); BILIRUBIN,TOTAL 0.6 MG/DL (0.1-1.0); TOTAL PROTEIN 6.5 G/DL (6.4-8.2)
[2018-04-25] MEDS ORDERED: LIDOcaine 1%/PF 5ML 10 MG/ML VIAL SQ ONE (09:35)
[2018-04-25] MEDS ORDERED: fentaNYL/PF 50MCG/1 ML 2ML syringe IV PRN (09:35)
[2018-04-25] MEDS ORDERED: midazolam 2 mg/2 ml injection IV PRN (09:35)
[2018-04-25] MEDS ORDERED: midazolam 2 mg/2 ml injection ONE (10:16)
[2018-04-25] MEDS ORDERED: fentaNYL/PF 50MCG/1 ML 2ML syringe ONE (10:17)
[2018-04-25] MEDS ORDERED: LIDOcaine 1% (10mg/ml) 2ml vial ONE (10:20)
[2018-04-25] MEDS: pantoprazole 40 MG vial IV SCH (11:25)
[2018-04-25] MEDS: methylPREDNISolone sod succ/PF 40mg inj. IV SCH ×2 (11:25→19:29)
[2018-04-25] MEDS: vancomycin/NS 1 GM ADD-VANTAGE 250 ML IV SCH ×2 (11:26→23:08)
[2018-04-25] MEDS: insulin glargine (Lantus) pen - multi-dose SQ SCH (19:30)
[2018-04-25] MEDS ORDERED: VANCOMYCIN LEVEL IV ONE (22:30)
[2018-04-26] VITALS (29 sets, daily range): BP systolic 98–132; BP diastolic 59–80
[2018-04-26] MEDS: ipratropium/albuterol 3ml nebule NEB SCH ×4 (02:27→20:12)
[2018-04-26 03:50] LABS: BASOPHILS % (AUTO) 0.1 % (0-1); EOSINOPHILS # (AUTO) 0.2 X10'3 (0-0.9); EOSINOPHILS % (AUTO) 1.4 % (0-6); HEMATOCRIT 36.4 % (35.0-45.0); HEMOGLOBIN 12.3 g/dl (12.0-16.0); LYMPHOCYTES # (AUTO) 1.2 X10'3 (1.1-4.8); LYMPHOCYTES % (AUTO) 10.7 % (21-51); MEAN CORPUSCULAR HEMOGLOBIN 30.9 PG (27.0-31.0); MEAN CORPUSCULAR HGB CONC 33.7 % (33.0-36.5); MEAN CORPUSCULAR VOLUME 91.9 FL (78-98); MEAN PLATELET VOLUME 7.1 FL (7.4-10.4); MONOCYTES # (AUTO) 0.7 X10'3 (0-0.9); MONOCYTES % (AUTO) 6.5 % (2-12); NEUTROPHILS % (AUTO) 81.3 % (42-75); PLATELET COUNT 308 X10'3 (140-440); RED BLOOD COUNT 3.96 X10'6 (4.20-5.60); RED CELL DISTRIBUTION WIDTH 16.8 % (11.5-14.5); WHITE BLOOD COUNT 11.1 X10'3 (4.5-11.0)
[2018-04-26 04:07] LABS: ALANINE AMINOTRANSFERASE 73 U/L (12-78); ALBUMIN 2.8 G/DL (3.4-5.0); ALBUMIN/GLOBULIN RATIO 0.9 (1.1-1.5); ALKALINE PHOSPHATASE 97 IU/L (46-116); ANION GAP 5 (8-16); ASPARTATE AMINO TRANSFERASE 28 U/L (10-37); BILIRUBIN,TOTAL 0.7 MG/DL (0.1-1.0); BLOOD UREA NITROGEN 29 MG/DL (7-18); BUN/CREATININE RATIO 36.3 (6.6-38.0); CALCIUM 9.4 MG/DL (8.5-10.1); CHLORIDE 99 MMOL/L (99-107); GLUCOSE 127 MG/DL (70-104); MAGNESIUM 1.6 MG/DL (1.5-2.4); PHOSPHORUS 5.6 MG/DL (2.3-4.5); POTASSIUM 4.2 MMOL/L (3.5-5.1); SODIUM 137 MMOL/L (135-145); TOTAL CARBON DIOXIDE 33.3 MMOL/L (24-32); TOTAL PROTEIN 5.8 G/DL (6.4-8.2); eGFR 73 ML/MIN
[2018-04-26] MEDS: thiamine 100mg tablet PO SCH ×2 (08:00→20:40)
[2018-04-26] MEDS ORDERED: furosemide 40mg tablet PO SCH (08:00)
[2018-04-26] MEDS: docusate sodium 100mg/10ml UD cup PO SCH ×2 (08:00→20:40)
[2018-04-26] MEDS: losartan 25mg tablet PO SCH (08:00)
[2018-04-26] MEDS: lactobacillus rhamnosus 10,000 MMU CELLS/CAPSULE PO SCH ×2 (08:00→20:40)
[2018-04-26] MEDS: folic acid/vitamin B complex w/vitamin C 0.8mg tablet PO SCH (08:00)
[2018-04-26] MEDS: enoxaparin 40mg/0.4ml syringe SUBCUT SCH (08:27)
[2018-04-26] MEDS: pantoprazole 40 MG vial IV SCH (08:27)
[2018-04-26] MEDS: furosemide 20 MG/2 ML vial IV SCH (08:27)
[2018-04-26] MEDS: methylPREDNISolone sod succ/PF 40mg inj. IV SCH ×2 (08:27→20:40)
[2018-04-26] MEDS: nystatin 15 GM powder TP SCH ×3 (08:28→20:41)
[2018-04-26] MEDS: vancomycin/NS 1 GM ADD-VANTAGE 250 ML IV SCH ×2 (11:36→23:28)
[2018-04-26] MEDS: HYDROmorphone 1 mg/ml syringe IV PRN (12:04)
[2018-04-26] MEDS ORDERED: fentaNYL/PF 50MCG/1 ML 2ML syringe ONE (14:43)
[2018-04-26] MEDS ORDERED: LIDOcaine Viscous 15ml cup ONE (14:43)
[2018-04-26] MEDS ORDERED: MIDAZolam 5mg/5ml vial ONE (14:43)
[2018-04-26] MEDS: insulin glargine (Lantus) pen - multi-dose SQ SCH (21:00)
[2018-04-27] VITALS (23 sets, daily range): BP systolic 92–130; BP diastolic 59–82
[2018-04-27] MEDS: ipratropium/albuterol 3ml nebule NEB SCH ×4 (02:33→20:20)
[2018-04-27 06:05] LABS: BASOPHILS % (AUTO) 0.2 % (0-1); EOSINOPHILS # (AUTO) 0.1 X10'3 (0-0.9); EOSINOPHILS % (AUTO) 1.3 % (0-6); HEMATOCRIT 37.7 % (35.0-45.0); HEMOGLOBIN 12.4 g/dl (12.0-16.0); LYMPHOCYTES # (AUTO) 0.9 X10'3 (1.1-4.8); LYMPHOCYTES % (AUTO) 10.1 % (21-51); MEAN CORPUSCULAR HEMOGLOBIN 30.4 PG (27.0-31.0); MEAN CORPUSCULAR VOLUME 92.3 FL (78-98); MEAN PLATELET VOLUME 7.3 FL (7.4-10.4); MONOCYTES # (AUTO) 0.6 X10'3 (0-0.9); MONOCYTES % (AUTO) 6.8 % (2-12); NEUTROPHILS # (AUTO) 7.4 X10'3 (1.8-7.7); NEUTROPHILS % (AUTO) 81.6 % (42-75); PLATELET COUNT 317 X10'3 (140-440); RED BLOOD COUNT 4.09 X10'6 (4.20-5.60); RED CELL DISTRIBUTION WIDTH 16.4 % (11.5-14.5); WHITE BLOOD COUNT 9.1 X10'3 (4.5-11.0)
[2018-04-27 06:28] LABS: ALANINE AMINOTRANSFERASE 84 U/L (12-78); ALBUMIN 2.9 G/DL (3.4-5.0); ALKALINE PHOSPHATASE 103 IU/L (46-116); ANION GAP 8 (8-16); ASPARTATE AMINO TRANSFERASE 34 U/L (10-37); BILIRUBIN,TOTAL 0.6 MG/DL (0.1-1.0); BLOOD UREA NITROGEN 30 MG/DL (7-18); CALCIUM 9.3 MG/DL (8.5-10.1); CHLORIDE 100 MMOL/L (99-107); CREATININE 0.81 MG/DL (0.40-0.90); GLUCOSE 135 MG/DL (70-104); MAGNESIUM 1.5 MG/DL (1.5-2.4); PHOSPHORUS 4.1 MG/DL (2.3-4.5); POTASSIUM 3.7 MMOL/L (3.5-5.1); SODIUM 138 MMOL/L (135-145); TOTAL CARBON DIOXIDE 29.6 MMOL/L (24-32); TOTAL PROTEIN 5.9 G/DL (6.4-8.2); eGFR 72 ML/MIN
[2018-04-27] MEDS: furosemide 20 MG/2 ML vial IV SCH (08:14)
[2018-04-27] MEDS: docusate sodium 100mg/10ml UD cup PO SCH ×2 (08:15→19:06)
[2018-04-27] MEDS: losartan 25mg tablet PO SCH (08:15)
[2018-04-27] MEDS: pantoprazole 40 MG vial IV SCH (08:15)
[2018-04-27] MEDS: methylPREDNISolone sod succ/PF 40mg inj. IV SCH ×2 (08:15→19:10)
[2018-04-27] MEDS: enoxaparin 40mg/0.4ml syringe SUBCUT SCH (08:15)
[2018-04-27] MEDS: thiamine 100mg tablet PO SCH ×2 (08:15→19:06)
[2018-04-27] MEDS: lactobacillus rhamnosus 10,000 MMU CELLS/CAPSULE PO SCH ×2 (08:15→19:06)
[2018-04-27] MEDS: folic acid/vitamin B complex w/vitamin C 0.8mg tablet PO SCH (08:15)
[2018-04-27] MEDS: nystatin 15 GM powder TP SCH ×3 (08:16→21:00)
[2018-04-27] MEDS: vancomycin/NS 1 GM ADD-VANTAGE 250 ML IV SCH ×2 (11:51→23:12)
[2018-04-27] MEDS: HYDROmorphone 1 mg/ml syringe IV PRN (13:42)
[2018-04-27] MEDS: insulin glargine (Lantus) pen - multi-dose SQ SCH (21:00)
[2018-04-28] VITALS (20 sets, daily range): BP systolic 97–133; BP diastolic 54–76
[2018-04-28 01:11] LABS: BASOPHILS % (AUTO) 0.2 % (0-1); EOSINOPHILS % (AUTO) 0.2 % (0-6); HEMATOCRIT 37.4 % (35.0-45.0); HEMOGLOBIN 12.7 g/dl (12.0-16.0); LYMPHOCYTES # (AUTO) 0.6 X10'3 (1.1-4.8); LYMPHOCYTES % (AUTO) 6.4 % (21-51); MEAN CORPUSCULAR HEMOGLOBIN 31.1 PG (27.0-31.0); MEAN CORPUSCULAR VOLUME 91.5 FL (78-98); MEAN PLATELET VOLUME 7.7 FL (7.4-10.4); MONOCYTES # (AUTO) 0.5 X10'3 (0-0.9); MONOCYTES % (AUTO) 4.8 % (2-12); NEUTROPHILS # (AUTO) 8.8 X10'3 (1.8-7.7); NEUTROPHILS % (AUTO) 88.4 % (42-75); PLATELET COUNT 328 X10'3 (140-440); RED BLOOD COUNT 4.09 X10'6 (4.20-5.60); RED CELL DISTRIBUTION WIDTH 15.6 % (11.5-14.5); WHITE BLOOD COUNT 9.9 X10'3 (4.5-11.0)
[2018-04-28 01:25] LABS: ALANINE AMINOTRANSFERASE 93 U/L (12-78); ALBUMIN 2.9 G/DL (3.4-5.0); ALBUMIN/GLOBULIN RATIO 0.9 (1.1-1.5); ALKALINE PHOSPHATASE 137 IU/L (46-116); ANION GAP 9 (8-16); ASPARTATE AMINO TRANSFERASE 34 U/L (10-37); BILIRUBIN,TOTAL 0.5 MG/DL (0.1-1.0); BLOOD UREA NITROGEN 36 MG/DL (7-18); BUN/CREATININE RATIO 37.1 (6.6-38.0); CALCIUM 8.8 MG/DL (8.5-10.1); CHLORIDE 100 MMOL/L (99-107); CREATININE 0.97 MG/DL (0.40-0.90); GLUCOSE 278 MG/DL (70-104); MAGNESIUM 1.2 MG/DL (1.5-2.4); PHOSPHORUS 3.6 MG/DL (2.3-4.5); POTASSIUM 3.8 MMOL/L (3.5-5.1); SODIUM 137 MMOL/L (135-145); TOTAL CARBON DIOXIDE 27.6 MMOL/L (24-32); TOTAL PROTEIN 6.1 G/DL (6.4-8.2); eGFR 58 ML/MIN
[2018-04-28] MEDS: HYDROmorphone 1 mg/ml syringe IV PRN (01:47)
[2018-04-28] MEDS: ipratropium/albuterol 3ml nebule NEB SCH ×4 (02:29→21:30)
[2018-04-28] MEDS: insulin regular, human vial - multi-dose SQ SCH ×3 (03:55→14:03)
[2018-04-28] MEDS: methylPREDNISolone sod succ/PF 40mg inj. IV SCH (08:03)
[2018-04-28] MEDS: pantoprazole 40 MG vial IV SCH (08:03)
[2018-04-28] MEDS: furosemide 20 MG/2 ML vial IV SCH (08:03)
[2018-04-28] MEDS: docusate sodium 100mg/10ml UD cup PO SCH ×2 (08:03→20:13)
[2018-04-28] MEDS: losartan 25mg tablet PO SCH (08:04)
[2018-04-28] MEDS: folic acid/vitamin B complex w/vitamin C 0.8mg tablet PO SCH (08:04)
[2018-04-28] MEDS: thiamine 100mg tablet PO SCH ×2 (08:04→20:13)
[2018-04-28] MEDS: lactobacillus rhamnosus 10,000 MMU CELLS/CAPSULE PO SCH ×2 (08:04→20:13)
[2018-04-28] MEDS: enoxaparin 40mg/0.4ml syringe SUBCUT SCH (08:04)
[2018-04-28] MEDS: nystatin 15 GM powder TP SCH ×3 (08:11→20:13)
[2018-04-28] MEDS: magnesium 4gm in 100ml NS 100 ML IV PRN (08:12)
[2018-04-28] MEDS: ziprasidone IM 20mg inj **IM only IM SCH (10:35)
[2018-04-28] MEDS: magnesium hydroxide 30ml (MOM) UD suspension PO PRN (12:35)
[2018-04-28] MEDS: acetaminophen 325mg tablet PO PRN ×2 (17:21→23:26)
[2018-04-28] MEDS: insulin glargine (Lantus) pen - multi-dose SQ SCH (21:00)
[2018-04-29] MEDS: insulin regular, human vial - multi-dose SQ SCH ×3 (02:53→20:35)
[2018-04-29] MEDS: ipratropium/albuterol 3ml nebule NEB SCH ×4 (02:56→21:14)
[2018-04-29 03:00] VITALS: BP 118/66
[2018-04-29 06:00] VITALS: BP 139/81
[2018-04-29 07:05] LABS: BASOPHILS # (AUTO) 0.1 X10'3 (0-0.2); BASOPHILS % (AUTO) 0.8 % (0-1); EOSINOPHILS # (AUTO) 0.1 X10'3 (0-0.9); EOSINOPHILS % (AUTO) 0.8 % (0-6); HEMATOCRIT 38.6 % (35.0-45.0); HEMOGLOBIN 12.9 g/dl (12.0-16.0); LYMPHOCYTES # (AUTO) 1.1 X10'3 (1.1-4.8); LYMPHOCYTES % (AUTO) 10.1 % (21-51); MEAN CORPUSCULAR HEMOGLOBIN 30.7 PG (27.0-31.0); MEAN CORPUSCULAR HGB CONC 33.4 % (33.0-36.5); MEAN CORPUSCULAR VOLUME 91.8 FL (78-98); MEAN PLATELET VOLUME 7.4 FL (7.4-10.4); MONOCYTES # (AUTO) 0.7 X10'3 (0-0.9); MONOCYTES % (AUTO) 6.3 % (2-12); NEUTROPHILS # (AUTO) 9.3 X10'3 (1.8-7.7); PLATELET COUNT 368 X10'3 (140-440); RED BLOOD COUNT 4.21 X10'6 (4.20-5.60); RED CELL DISTRIBUTION WIDTH 16.5 % (11.5-14.5); WHITE BLOOD COUNT 11.3 X10'3 (4.5-11.0)
[2018-04-29 07:23] LABS: ANION GAP 9 (8-16); BLOOD UREA NITROGEN 34 MG/DL (7-18); BUN/CREATININE RATIO 37.4 (6.6-38.0); CHLORIDE 102 MMOL/L (99-107); CREATININE 0.91 MG/DL (0.40-0.90); GLUCOSE 149 MG/DL (70-104); POTASSIUM 3.1 MMOL/L (3.5-5.1); SODIUM 141 MMOL/L (135-145); TOTAL CARBON DIOXIDE 29.9 MMOL/L (24-32)
[2018-04-29 07:24] LABS: ALANINE AMINOTRANSFERASE 79 U/L (12-78); ALKALINE PHOSPHATASE 135 IU/L (46-116); ASPARTATE AMINO TRANSFERASE 29 U/L (10-37); BILIRUBIN,TOTAL 0.5 MG/DL (0.1-1.0); CALCIUM 9.5 MG/DL (8.5-10.1); MAGNESIUM 1.6 MG/DL (1.5-2.4); PHOSPHORUS 3.1 MG/DL (2.3-4.5); TOTAL PROTEIN 6.1 G/DL (6.4-8.2); eGFR 63 ML/MIN
[2018-04-29] MEDS: losartan 25mg tablet PO SCH (08:51)
[2018-04-29] MEDS: docusate sodium 100mg/10ml UD cup PO SCH ×2 (08:51→19:28)
[2018-04-29] MEDS: lactobacillus rhamnosus 10,000 MMU CELLS/CAPSULE PO SCH ×2 (08:51→19:28)
[2018-04-29] MEDS: furosemide 20 MG/2 ML vial IV SCH (08:51)
[2018-04-29] MEDS: pantoprazole 40 MG vial IV SCH (08:51)
[2018-04-29] MEDS: folic acid/vitamin B complex w/vitamin C 0.8mg tablet PO SCH (08:51)
[2018-04-29] MEDS: thiamine 100mg tablet PO SCH ×2 (08:51→19:28)
[2018-04-29] MEDS: ziprasidone IM 20mg inj **IM only IM SCH (08:52)
[2018-04-29] MEDS: enoxaparin 40mg/0.4ml syringe SUBCUT SCH (08:53)
[2018-04-29] MEDS: nystatin 15 GM powder TP SCH ×3 (08:54→21:00)
[2018-04-29 11:00] VITALS: BP 109/69
[2018-04-29] MEDS: acetaminophen 325mg tablet PO PRN (13:00)
[2018-04-29 13:36] LABS: PREALBUMIN 47.2 MG/DL (19-36)
[2018-04-29] MEDS: magnesium hydroxide 30ml (MOM) UD suspension PO PRN (14:21)
[2018-04-29] MEDS: potassium Cl 20 mEq SR tablet PO PRN ×2 (14:22→19:28)
[2018-04-29 15:00] VITALS: BP 116/69
[2018-04-29 19:00] VITALS: BP 110/91
[2018-04-29] MEDS: insulin glargine (Lantus) pen - multi-dose SQ SCH (21:00)
[2018-04-29 23:00] VITALS: BP 110/91
[2018-04-30] MEDS: insulin regular, human vial - multi-dose SQ SCH ×3 (02:10→14:35)
[2018-04-30] MEDS: ipratropium/albuterol 3ml nebule NEB SCH ×4 (02:50→20:28)
[2018-04-30 03:00] VITALS: BP 125/87
[2018-04-30 05:42] LABS: BASOPHILS % (AUTO) 0.4 % (0-1); EOSINOPHILS # (AUTO) 0.2 X10'3 (0-0.9); EOSINOPHILS % (AUTO) 1.9 % (0-6); HEMATOCRIT 39.4 % (35.0-45.0); HEMOGLOBIN 13.2 g/dl (12.0-16.0); LYMPHOCYTES # (AUTO) 1.1 X10'3 (1.1-4.8); LYMPHOCYTES % (AUTO) 9.2 % (21-51); MEAN CORPUSCULAR HEMOGLOBIN 30.7 PG (27.0-31.0); MEAN CORPUSCULAR HGB CONC 33.5 % (33.0-36.5); MEAN CORPUSCULAR VOLUME 91.8 FL (78-98); MEAN PLATELET VOLUME 7.7 FL (7.4-10.4); MONOCYTES # (AUTO) 0.6 X10'3 (0-0.9); MONOCYTES % (AUTO) 5.3 % (2-12); NEUTROPHILS % (AUTO) 83.2 % (42-75); PLATELET COUNT 369 X10'3 (140-440); RED BLOOD COUNT 4.29 X10'6 (4.20-5.60); RED CELL DISTRIBUTION WIDTH 16.3 % (11.5-14.5); WHITE BLOOD COUNT 12.1 X10'3 (4.5-11.0)
[2018-04-30 06:00] VITALS: BP 125/81
[2018-04-30 06:06] LABS: ALANINE AMINOTRANSFERASE 70 U/L (12-78); ALBUMIN 2.9 G/DL (3.4-5.0); ALBUMIN/GLOBULIN RATIO 0.8 (1.1-1.5); ALKALINE PHOSPHATASE 147 IU/L (46-116); ANION GAP 10 (8-16); ASPARTATE AMINO TRANSFERASE 24 U/L (10-37); BILIRUBIN,TOTAL 0.5 MG/DL (0.1-1.0); BLOOD UREA NITROGEN 35 MG/DL (7-18); BUN/CREATININE RATIO 39.3 (6.6-38.0); CALCIUM 9.6 MG/DL (8.5-10.1); CHLORIDE 103 MMOL/L (99-107); CREATININE 0.89 MG/DL (0.40-0.90); GLUCOSE 186 MG/DL (70-104); MAGNESIUM 1.7 MG/DL (1.5-2.4); PHOSPHORUS 3.9 MG/DL (2.3-4.5); POTASSIUM 3.4 MMOL/L (3.5-5.1); SODIUM 141 MMOL/L (135-145); TOTAL CARBON DIOXIDE 27.8 MMOL/L (24-32); TOTAL PROTEIN 6.5 G/DL (6.4-8.2); eGFR 64 ML/MIN
[2018-04-30] MEDS: ziprasidone IM 20mg inj **IM only IM SCH (08:00)
[2018-04-30] MEDS: pantoprazole 40mg Tablet.DR PO SCH (08:00)
[2018-04-30] MEDS: docusate sodium 100mg/10ml UD cup PO SCH ×2 (08:15→20:38)
[2018-04-30] MEDS: folic acid/vitamin B complex w/vitamin C 0.8mg tablet PO SCH (08:15)
[2018-04-30] MEDS: lactobacillus rhamnosus 10,000 MMU CELLS/CAPSULE PO SCH ×2 (08:15→20:38)
[2018-04-30] MEDS: thiamine 100mg tablet PO SCH ×2 (08:16→20:38)
[2018-04-30] MEDS: acetaminophen 325mg tablet PO PRN (08:16)
[2018-04-30] MEDS: furosemide 20MG tablet PO SCH (08:16)
[2018-04-30] MEDS: enoxaparin 40mg/0.4ml syringe SUBCUT SCH (08:16)
[2018-04-30] MEDS: losartan 25mg tablet PO SCH (08:16)
[2018-04-30] MEDS: nystatin 15 GM powder TP SCH ×3 (08:17→20:41)
[2018-04-30 11:00] VITALS: BP 121/82
[2018-04-30 15:00] VITALS: BP 125/82
[2018-04-30 19:00] VITALS: BP 166/76
[2018-04-30] MEDS: insulin glargine (Lantus) pen - multi-dose SQ SCH (21:00)
[2018-04-30 23:00] VITALS: BP 117/70
[2018-05-01 03:00] VITALS: BP 139/77
[2018-05-01] MEDS: ipratropium/albuterol 3ml nebule NEB SCH ×3 (03:00→15:02)
[2018-05-01 04:38] LABS: BASOPHILS # (AUTO) 0.1 X10'3 (0-0.2); BASOPHILS % (AUTO) 0.6 % (0-1); EOSINOPHILS # (AUTO) 0.3 X10'3 (0-0.9); EOSINOPHILS % (AUTO) 2.8 % (0-6); HEMATOCRIT 37.8 % (35.0-45.0); HEMOGLOBIN 12.8 g/dl (12.0-16.0); LYMPHOCYTES # (AUTO) 1.5 X10'3 (1.1-4.8); LYMPHOCYTES % (AUTO) 14.5 % (21-51); MEAN CORPUSCULAR HEMOGLOBIN 30.8 PG (27.0-31.0); MEAN CORPUSCULAR HGB CONC 33.8 % (33.0-36.5); MEAN CORPUSCULAR VOLUME 91.1 FL (78-98); MEAN PLATELET VOLUME 7.9 FL (7.4-10.4); MONOCYTES # (AUTO) 0.5 X10'3 (0-0.9); NEUTROPHILS # (AUTO) 7.7 X10'3 (1.8-7.7); NEUTROPHILS % (AUTO) 77.1 % (42-75); PLATELET COUNT 362 X10'3 (140-440); RED BLOOD COUNT 4.15 X10'6 (4.20-5.60); RED CELL DISTRIBUTION WIDTH 16.5 % (11.5-14.5)
[2018-05-01 05:04] LABS: ALANINE AMINOTRANSFERASE 72 U/L (12-78); ALBUMIN 2.8 G/DL (3.4-5.0); ALBUMIN/GLOBULIN RATIO 0.8 (1.1-1.5); ALKALINE PHOSPHATASE 124 IU/L (46-116); ANION GAP 10 (8-16); ASPARTATE AMINO TRANSFERASE 30 U/L (10-37); BILIRUBIN,TOTAL 0.8 MG/DL (0.1-1.0); BLOOD UREA NITROGEN 27 MG/DL (7-18); BUN/CREATININE RATIO 34.2 (6.6-38.0); CALCIUM 9.5 MG/DL (8.5-10.1); CHLORIDE 98 MMOL/L (99-107); CREATININE 0.79 MG/DL (0.40-0.90); GLUCOSE 157 MG/DL (70-104); MAGNESIUM 1.5 MG/DL (1.5-2.4); POTASSIUM 3.5 MMOL/L (3.5-5.1); SODIUM 134 MMOL/L (135-145); TOTAL CARBON DIOXIDE 26.4 MMOL/L (24-32); TOTAL PROTEIN 6.2 G/DL (6.4-8.2); eGFR 74 ML/MIN
[2018-05-01 06:00] VITALS: BP 135/90
[2018-05-01] MEDS: pantoprazole 40mg Tablet.DR PO SCH (07:48)
[2018-05-01] MEDS: lactobacillus rhamnosus 10,000 MMU CELLS/CAPSULE PO SCH (07:48)
[2018-05-01] MEDS: thiamine 100mg tablet PO SCH (07:48)
[2018-05-01] MEDS: docusate sodium 100mg/10ml UD cup PO SCH (07:48)
[2018-05-01] MEDS: folic acid/vitamin B complex w/vitamin C 0.8mg tablet PO SCH (07:48)
[2018-05-01] MEDS: nystatin 15 GM powder TP SCH ×2 (07:49→13:00)
[2018-05-01] MEDS: losartan 25mg tablet PO SCH (07:49)
[2018-05-01] MEDS: furosemide 20MG tablet PO SCH (07:49)
[2018-05-01] MEDS: enoxaparin 40mg/0.4ml syringe SUBCUT SCH (07:50)
[2018-05-01 11:00] VITALS: BP 109/74
[2018-05-01 15:00] VITALS: BP 133/79
== END 2018-05-01 17:00 | DRG 208 ==
LOC: ICU 2S 00:30 → PCU 3S 04-28 16:40
PROVIDERS: ADMIT Internal Medicine Critical Care Medicine; ATTEND Internal Medicine
PROC: 5A1945Z Respiratory Ventilation, 24-96 Consecutive Hours (ICD-10-PCS; principal; 2018-04-17)
PROC: 0JH63XZ Insertion of Tunneled Vascular Access Device into Chest Subcutaneous Tissue and Fascia, Percutaneous Approach (ICD-10-PCS; 2018-04-25)
PROC: 02HV33Z Insertion of Infusion Device into Superior Vena Cava, Percutaneous Approach (ICD-10-PCS; 2018-04-25)
PROC: B5181ZA Fluoroscopy of Superior Vena Cava using Low Osmolar Contrast, Guidance (ICD-10-PCS; 2018-04-25)
PROC: B548ZZA Ultrasonography of Superior Vena Cava, Guidance (ICD-10-PCS; 2018-04-25)
PROC: 0DH68UZ Insertion of Feeding Device into Stomach, Via Natural or Artificial Opening Endoscopic (ICD-10-PCS; 2018-04-26)
PROC: 0DJ08ZZ Inspection of Upper Intestinal Tract, Via Natural or Artificial Opening Endoscopic (ICD-10-PCS; 2018-04-26)
DX: J96.00 Acute respiratory failure, unspecified whether with hypoxia or hypercapnia (principal); F10.239 Alcohol dependence with withdrawal, unspecified; E87.1 Hypo-osmolality and hyponatremia; K76.6 Portal hypertension; B96.20 Unspecified Escherichia coli [E. coli] as the cause of diseases classified elsewhere; E78.5 Hyperlipidemia, unspecified; E87.6 Hypokalemia; F31.9 Bipolar disorder, unspecified; Z60.2 Problems related to living alone; F41.9 Anxiety disorder, unspecified; N30.90 Cystitis, unspecified without hematuria; K31.89 Other diseases of stomach and duodenum; R13.14 Dysphagia, pharyngoesophageal phase; R13.19 Other dysphagia; Z96.653 Presence of artificial knee joint, bilateral; I12.9 Hypertensive chronic kidney disease with stage 1 through stage 4 chronic kidney disease, or unspecified chronic kidney disease; J44.9 Chronic obstructive pulmonary disease, unspecified; K21.9 Gastro-esophageal reflux disease without esophagitis; N18.9 Chronic kidney disease, unspecified; Z56.0 Unemployment, unspecified; Z90.710 Acquired absence of both cervix and uterus; Z88.6 Allergy status to analgesic agent; Z88.8 Allergy status to other drugs, medicaments and biological substances; Z79.899 Other long term (current) drug therapy; Z86.73 Personal history of transient ischemic attack (TIA), and cerebral infarction without residual deficits; Z87.440 Personal history of urinary (tract) infections; Z87.891 Personal history of nicotine dependence; Z82.49 Family history of ischemic heart disease and other diseases of the circulatory system; Z83.3 Family history of diabetes mellitus; Z80.9 Family history of malignant neoplasm, unspecified
CPT/HCPCS: 36415; 36558; 36600; 70470; 71045; 74018; 76937; 77001; 80053; 80202; 81001; 82803; 82948; 83605; 83735; 84100; 84132; 84134; 84145; 85018; 85025; 85610; 85730; 86885; 86900; 86901; 87040; 87070; 87077; 87088; 87186; 92616; 93971; 94002; 94003; 94640; 94667; 94668; 94760; 97110; 97116; 97161; 97530; 99152; 99285; A4620; A9270; C1751; C1894; C9113; G0378; J0456; J0696; J1170; J1650; J1815; J1940; J1956; J2060; J2250; J2405; J2920; J2930; J3010; J3370; J3411; J3475; J3480; J3486; J3490; J7060; Q9967

== ENCOUNTER 2018-10-17 07:54 | Inpatient (IN) | payer MEDICARE, BC ==
[~2018-10-17] VITALS: Ht 149.9 cm; Wt 68.1 kg
[~2018-10-17 07:54] MED LIST: ALBUTEROL IH; AMIT-189 PO; DIAZ5TAB4 PO; DULO-31 PO; FURO40TA4 PO; GABA-534 PO; IRBE75TA30 PO; LIDO700A47 TD; MELO-102 PO; OMEP20TA23 PO; ONDA4FIL5 PO; POTA10TA19 PO; VALA100027 PO
[2018-10-17] MEDS ORDERED: benzonatate 100mg capsule PO ONE (08:45)
[2018-10-17] MEDS ORDERED: albuterol 2.5 MG/3 ML nebule CONTNEB PRN (08:45)
--- NOTE | 2018-10-17 08:58 | NUR ---
O2 sats 87% on RA.
[2018-10-17] MEDS ORDERED: ZIPR40CA14 PO (10:44)
[2018-10-17] MEDS ORDERED: TRAM50TA2 PO (10:44)
[2018-10-17] MEDS ORDERED: MECL-111 PO (10:44)
[2018-10-17] MEDS ORDERED: LOSA25TA41 PO (10:44)
--- NOTE | 2018-10-17 10:44 | NUR ---
Dr Foy at bedside.
[2018-10-17] MEDS ORDERED: FEXO180T94 PO (10:47)
[2018-10-17] MEDS ORDERED: FLUT1BLS4 IH (10:47)
[2018-10-17] MEDS ORDERED: MULT-933 PO (10:47)
[2018-10-17] MEDS ORDERED: MAGN500C16 PO (10:48)
[2018-10-17] MEDS ORDERED: CALC-1197 PO (10:49)
[2018-10-17] MEDS ORDERED: GABA PO (10:49)
[2018-10-17] MEDS ORDERED: MELA3TAB PO (10:51)
[2018-10-17] MEDS ORDERED: nicotine 14mg patch - 24hr TD ONE (11:00)
[2018-10-17] MEDS ORDERED: potassium Cl 40MEQ/NS 500ml 500 ML IV PRN ×2 (11:00)
[2018-10-17] MEDS ORDERED: ondansetron/PF 4mg/2ml inj IV PRN (11:00)
[2018-10-17] MEDS ORDERED: morphine 2 MG/ML inj. syringe IV PRN ×2 (11:00)
[2018-10-17] MEDS ORDERED: magnesium 4gm in 100ml NS 100 ML IV PRN (11:00)
[2018-10-17] MEDS ORDERED: mag hydrox/Alum hydrox/simeth 30ml oral suspension PO PRN (11:00)
[2018-10-17] MEDS ORDERED: magnesium 2GM in 50ml NS 50 ML IV PRN (11:00)
[2018-10-17] MEDS ORDERED: potassium Cl 20 mEq SR tablet PO PRN ×2 (11:00)
[2018-10-17] MEDS ORDERED: acetaminophen 325mg tablet PO PRN ×2 (11:00)
[2018-10-17] MEDS ORDERED: HYDROcodone/acetaminophen 5mg/325mg tablet PO PRN (11:00)
--- NOTE | 2018-10-17 11:26 | NUR ---
RT paged to notify of need to ABG's.
[2018-10-17 11:56] LABS: ABG BASE EXCESS 0.4 mmol/L (-2.0-3.0); ABG HCO3 26.3 mmol/L (22.0-26.0); ABG OXYGEN SATURATION 90.2 % (95-98); ABG PCO2 (T) 46.9 mmHg (32.0-45.0); ABG PH (T) 7.366 (7.350-7.450); ABG PO2 (T) 61.3 mmHg (83-108); ALLEN'S TEST Positive; FCOHb 2.5 % (0.5-1.5); FLOW 2 L/min; FMetHb 0.1 % (0.3-1.12); FO2Hb 87.9 % (94-100); TOTAL HEMOGLOBIN 13.3 G/dl (12.0-16.0)
[2018-10-17] MEDS: albuterol 2.5 MG/3 ML nebule NEB SCH ×4 (12:31→23:39)
[2018-10-17 13:00] VITALS: BP 153/81
[2018-10-17] MEDS: HYDROcodone/acetaminophen 10/325mg tab PO PRN ×2 (13:43→21:25)
[2018-10-17] MEDS: guaiFENesin 200 MG/10 ML oral syrup UD cup PO PRN ×2 (16:18→23:31)
--- NOTE | 2018-10-17 18:07 | NUR ---
Problems reprioritized. Patient report given, questions answered & plan of care reviewed with WINDY JASMINE.
--- NOTE | 2018-10-17 18:29 | NUR ---
Patient in room [facility] 350. I have received report from Lynne JASMINE and had the opportunity to ask questions and assume patient care with Alta JASMINE.
--- NOTE | 2018-10-17 18:33 | NUR ---
Received report from Lynne JASMINE pt is awake and alert on 2L of o2 via NC in no apparent distress, call light and items of freq use within reach.
[2018-10-17 19:00] VITALS: BP 163/92
[2018-10-17] MEDS: methylPREDNISolone sod succ 125mg/2ml vial IV SCH (19:47)
[2018-10-17] MEDS: docusate sod 100mg capsule PO SCH (19:48)
[2018-10-17] MEDS: heparin, porcine 5000 units/ml vial SQ SCH (19:51)
[2018-10-18] VITALS: BP 120/57
[2018-10-18] MEDS: LORazepam 2 mg/ml vial IV PRN ×2 (03:20→16:40)
[2018-10-18] MEDS: albuterol 2.5 MG/3 ML nebule NEB SCH ×6 (04:17→23:01)
[2018-10-18] MEDS: guaiFENesin 200 MG/10 ML oral syrup UD cup PO PRN ×3 (05:44→21:38)
--- NOTE | 2018-10-18 06:21 | NUR ---
Problems reprioritized. Patient report given Alicia JASMINE, questions answered & plan of care reviewed with Alta JASMINE. Patient was very uncomfortable and complained of sweat and SOB.
--- NOTE | 2018-10-18 06:31 | NUR ---
Gave report to Alicia JASMINE with Prudence RN pt is resting on 2L of O2 via NC in no apparent distress, call light and items of freq use within reach.
[2018-10-18] MEDS: HYDROcodone/acetaminophen 10/325mg tab PO PRN (06:46)
[2018-10-18] MEDS: pantoprazole 40mg Tablet.DR PO SCH (06:46)
[2018-10-18] MEDS: docusate sod 100mg capsule PO SCH ×2 (06:47→19:34)
[2018-10-18] MEDS: heparin, porcine 5000 units/ml vial SQ SCH ×2 (06:49→19:34)
[2018-10-18] MEDS: methylPREDNISolone sod succ 125mg/2ml vial IV SCH ×2 (06:51→19:34)
[2018-10-18] MEDS: CefTRIAXone 2gm/D5W 50ml 50 ML IV SCH (07:05)
[2018-10-18 07:23] LABS: BASOPHILS % (AUTO) 0.3 % (0-1); EOSINOPHILS % (AUTO) 0.1 % (0-6); HEMOGLOBIN 13.5 g/dl (12.0-16.0); LYMPHOCYTES # (AUTO) 0.9 X10'3 (1.1-4.8); LYMPHOCYTES % (AUTO) 11.1 % (21-51); MEAN CORPUSCULAR HGB CONC 33.8 g/dL (33.0-36.5); MEAN CORPUSCULAR VOLUME 85.6 FL (78-98); MEAN PLATELET VOLUME 6.8 FL (7.4-10.4); MONOCYTES # (AUTO) 0.2 X10'3 (0-0.9); MONOCYTES % (AUTO) 2.7 % (2-12); NEUTROPHILS # (AUTO) 7.3 X10'3 (1.8-7.7); NEUTROPHILS % (AUTO) 85.8 % (42-75); PLATELET COUNT 427 X10'3 (140-440); RED BLOOD COUNT 4.67 X10'6 (4.20-5.60); RED CELL DISTRIBUTION WIDTH 15.4 % (11.5-14.5); WHITE BLOOD COUNT 8.5 X10'3 (4.5-11.0)
[2018-10-18 07:38] LABS: ALANINE AMINOTRANSFERASE 26 U/L (12-78); ALBUMIN 3.2 G/DL (3.4-5.0); ALBUMIN/GLOBULIN RATIO 0.9 (1.1-1.5); ALKALINE PHOSPHATASE 121 IU/L (46-116); ANION GAP 11 (8-16); ASPARTATE AMINO TRANSFERASE 19 U/L (10-37); BILIRUBIN,TOTAL 0.4 MG/DL (0.1-1.0); BLOOD UREA NITROGEN 12 MG/DL (7-18); BUN/CREATININE RATIO 18.8 (6.6-38.0); CALCIUM 9.6 MG/DL (8.5-10.1); CHLORIDE 99 MMOL/L (99-107); CREATININE 0.64 MG/DL (0.40-0.90); GLUCOSE 154 MG/DL (70-104); MAGNESIUM 1.4 MG/DL (1.5-2.4); POTASSIUM 4.1 MMOL/L (3.5-5.1); SODIUM 136 MMOL/L (135-145); TOTAL CARBON DIOXIDE 25.9 MMOL/L (24-32); TOTAL PROTEIN 6.8 G/DL (6.4-8.2); eGFR > 90 ML/MIN
[2018-10-18 07:42] VITALS: BP 159/81
[2018-10-18] MEDS: K and/or MAG REPLACEMENT MC SCH (08:00)
[2018-10-18] MEDS: losartan 25mg tablet PO SCH (09:20)
[2018-10-18] MEDS: magnesium oxide 400mg tablet PO SCH (09:20)
[2018-10-18] MEDS: duloxetine 30mg CAPSULE.DR PO SCH (09:20)
[2018-10-18] MEDS: magnesium Cl slow-release 64mg tablet PO PRN ×2 (09:20→21:07)
[2018-10-18] MEDS: LIDOcaine 5% patch TP SCH ×2 (09:23→20:00)
[2018-10-18 11:41] VITALS: BP 130/64
[2018-10-18] MEDS: nicotine 14mg patch - 24hr TD SCH (11:48)
[2018-10-18] MEDS: traMADol 50MG tablet PO PRN (15:34)
--- NOTE | 2018-10-18 18:22 | NUR ---
Patient in room [facility] 350. I have received report from KENROY Haro and had the opportunity to ask questions and assume patient care. Addendum: 10/18/18 at 1823 by Katrina Lanier RN Amended: Links added.
--- NOTE | 2018-10-18 18:33 | NUR ---
Problems reprioritized. Patient report given, questions answered & plan of care reviewed with María Hamm RN. Pt more relaxed at this time.
[2018-10-18] MEDS: lactobacillus rhamnosus 10,000 MMU CELLS/CAPSULE PO SCH (19:34)
[2018-10-18 20:00] VITALS: BP 146/79
[2018-10-18] MEDS: gabapentin 400mg capsule PO SCH (20:39)
[2018-10-18] MEDS: amitriptyline 25mg tablet PO SCH (20:40)
[2018-10-18] MEDS: ziprasidone 20mg capsule PO SCH (20:40)
[2018-10-19] MEDS: albuterol 2.5 MG/3 ML nebule NEB SCH ×6 (03:05→23:04)
[2018-10-19 06:05] LABS: BASOPHILS % (AUTO) 0.2 % (0-1); EOSINOPHILS % (AUTO) 0 % (0-6); HEMATOCRIT 39.9 % (35.0-45.0); HEMOGLOBIN 13.5 g/dl (12.0-16.0); LYMPHOCYTES % (AUTO) 11.7 % (21-51); MEAN CORPUSCULAR HGB CONC 33.9 g/dL (33.0-36.5); MEAN CORPUSCULAR VOLUME 85.6 FL (78-98); MEAN PLATELET VOLUME 6.7 FL (7.4-10.4); MONOCYTES # (AUTO) 0.3 X10'3 (0-0.9); MONOCYTES % (AUTO) 3.8 % (2-12); NEUTROPHILS # (AUTO) 7.4 X10'3 (1.8-7.7); NEUTROPHILS % (AUTO) 84.3 % (42-75); PLATELET COUNT 444 X10'3 (140-440); RED BLOOD COUNT 4.66 X10'6 (4.20-5.60); RED CELL DISTRIBUTION WIDTH 15.4 % (11.5-14.5); WHITE BLOOD COUNT 8.8 X10'3 (4.5-11.0)
[2018-10-19 06:22] LABS: ALANINE AMINOTRANSFERASE 29 U/L (12-78); ALBUMIN 3.1 G/DL (3.4-5.0); ALBUMIN/GLOBULIN RATIO 0.9 (1.1-1.5); ALKALINE PHOSPHATASE 108 IU/L (46-116); ANION GAP 8 (8-16); ASPARTATE AMINO TRANSFERASE 19 U/L (10-37); BILIRUBIN,TOTAL 0.2 MG/DL (0.1-1.0); BLOOD UREA NITROGEN 16 MG/DL (7-18); BUN/CREATININE RATIO 22.2 (6.6-38.0); CALCIUM 9.3 MG/DL (8.5-10.1); CHLORIDE 100 MMOL/L (99-107); CREATININE 0.72 MG/DL (0.40-0.90); GLUCOSE 171 MG/DL (70-104); MAGNESIUM 1.6 MG/DL (1.5-2.4); POTASSIUM 4.4 MMOL/L (3.5-5.1); SODIUM 135 MMOL/L (135-145); TOTAL CARBON DIOXIDE 26.8 MMOL/L (24-32); TOTAL PROTEIN 6.6 G/DL (6.4-8.2); eGFR 82 ML/MIN
[2018-10-19 06:25] VITALS: BP 151/91
--- NOTE | 2018-10-19 06:33 | NUR ---
Problems reprioritized. Patient report given, questions answered & plan of care reviewed with KENROY Chamberlain. Addendum: 10/19/18 at 0634 by Katrina Lanier RN Amended: Links added.
--- NOTE | 2018-10-19 06:40 | NUR ---
Patient in room [facility] 350. I have received report from jake hernandez and had the opportunity to ask questions and assume patient care.
[2018-10-19] MEDS: K and/or MAG REPLACEMENT MC SCH (08:00)
[2018-10-19] MEDS: magnesium oxide 400mg tablet PO SCH (08:23)
[2018-10-19] MEDS: loratadine 10mg tablet PO SCH (08:23)
[2018-10-19] MEDS: lactobacillus rhamnosus 10,000 MMU CELLS/CAPSULE PO SCH ×2 (08:24→20:41)
[2018-10-19] MEDS: pantoprazole 40mg Tablet.DR PO SCH (08:24)
[2018-10-19] MEDS: CefTRIAXone 2gm/D5W 50ml 50 ML IV SCH (08:24)
[2018-10-19] MEDS: losartan 25mg tablet PO SCH (08:24)
[2018-10-19] MEDS: docusate sod 100mg capsule PO SCH ×2 (08:24→20:41)
[2018-10-19] MEDS: duloxetine 30mg CAPSULE.DR PO SCH (08:24)
[2018-10-19] MEDS: heparin, porcine 5000 units/ml vial SQ SCH ×2 (08:25→20:42)
[2018-10-19] MEDS: nicotine 14mg patch - 24hr TD SCH (08:25)
[2018-10-19] MEDS: LIDOcaine 5% patch TP SCH ×2 (08:25→20:00)
[2018-10-19] MEDS: methylPREDNISolone sod succ 125mg/2ml vial IV SCH (08:26)
[2018-10-19] MEDS: HYDROcodone/acetaminophen 10/325mg tab PO PRN ×3 (08:52→22:37)
[2018-10-19] MEDS: guaiFENesin 200 MG/10 ML oral syrup UD cup PO PRN ×3 (08:52→22:37)
[2018-10-19 11:00] VITALS: BP 138/77
[2018-10-19] MEDS ORDERED: iohexol 300mg/ml 100ml inj. ONE (11:21)
--- NOTE | 2018-10-19 12:29 | NUR ---
patient seen by Dr rowe CT chest ordered . patient had CT 1130hrs.
[2018-10-19] MEDS: LORazepam 2 mg/ml vial IV PRN (13:38)
--- NOTE | 2018-10-19 13:41 | NUR ---
patient very anxious standing on side leaning over bed. Staff spoke with patient, patient compliant to return to bed. Ativan administered patient resting
--- NOTE | 2018-10-19 18:41 | NUR ---
Problems reprioritized. Patient report given, questions answered & plan of care reviewed with matthew JASMINE.
--- NOTE | 2018-10-19 18:45 | NUR ---
Patient in room [facility] 350. I have received report from Cintia JASMINE and had the opportunity to ask questions and assume patient care.
--- NOTE | 2018-10-19 18:45 | NUR ---
Patient in room [facility] 350. I have received report from Cintia JASMINE and had the opportunity to ask questions and assume patient care with Alta JASMINE and Tanisha JASMINE.
[2018-10-19 19:00] VITALS: BP 149/80
[2018-10-19] MEDS: traMADol 50MG tablet PO PRN (19:05)
[2018-10-19] MEDS: ziprasidone 20mg capsule PO SCH (20:40)
[2018-10-19] MEDS: amitriptyline 25mg tablet PO SCH (20:41)
[2018-10-19] MEDS: gabapentin 400mg capsule PO SCH (21:31)
[2018-10-20] VITALS: BP 106/60
[2018-10-20] MEDS: albuterol 2.5 MG/3 ML nebule NEB SCH ×4 (03:05→11:45)
[2018-10-20] MEDS: HYDROcodone/acetaminophen 10/325mg tab PO PRN ×2 (05:04→11:45)
[2018-10-20] MEDS: guaiFENesin 200 MG/10 ML oral syrup UD cup PO PRN ×2 (05:09→11:46)
[2018-10-20 06:16] LABS: BASOPHILS % (AUTO) 0.4 % (0-1); EOSINOPHILS % (AUTO) 0.3 % (0-6); HEMATOCRIT 41.7 % (35.0-45.0); HEMOGLOBIN 14.4 g/dl (12.0-16.0); LYMPHOCYTES # (AUTO) 3.1 X10'3 (1.1-4.8); LYMPHOCYTES % (AUTO) 29.9 % (21-51); MEAN CORPUSCULAR HEMOGLOBIN 29.7 PG (27.0-31.0); MEAN CORPUSCULAR HGB CONC 34.5 g/dL (33.0-36.5); MEAN CORPUSCULAR VOLUME 86.2 FL (78-98); MEAN PLATELET VOLUME 6.6 FL (7.4-10.4); MONOCYTES # (AUTO) 0.8 X10'3 (0-0.9); MONOCYTES % (AUTO) 7.6 % (2-12); NEUTROPHILS # (AUTO) 6.4 X10'3 (1.8-7.7); NEUTROPHILS % (AUTO) 61.8 % (42-75); PLATELET COUNT 502 X10'3 (140-440); RED BLOOD COUNT 4.84 X10'6 (4.20-5.60); RED CELL DISTRIBUTION WIDTH 15.6 % (11.5-14.5); WHITE BLOOD COUNT 10.4 X10'3 (4.5-11.0)
[2018-10-20 06:18] LABS: ALANINE AMINOTRANSFERASE 29 U/L (12-78); ALBUMIN 3.3 G/DL (3.4-5.0); ALBUMIN/GLOBULIN RATIO 0.9 (1.1-1.5); ALKALINE PHOSPHATASE 117 IU/L (46-116); ANION GAP 8 (8-16); ASPARTATE AMINO TRANSFERASE 17 U/L (10-37); BILIRUBIN,TOTAL 0.2 MG/DL (0.1-1.0); BLOOD UREA NITROGEN 18 MG/DL (7-18); BUN/CREATININE RATIO 23.4 (6.6-38.0); CALCIUM 9.6 MG/DL (8.5-10.1); CHLORIDE 100 MMOL/L (99-107); CREATININE 0.77 MG/DL (0.40-0.90); GLUCOSE 107 MG/DL (70-104); MAGNESIUM 1.6 MG/DL (1.5-2.4); POTASSIUM 4.1 MMOL/L (3.5-5.1); SODIUM 137 MMOL/L (135-145); TOTAL CARBON DIOXIDE 29.1 MMOL/L (24-32); TOTAL PROTEIN 6.9 G/DL (6.4-8.2); eGFR 76 ML/MIN
--- NOTE | 2018-10-20 06:26 | NUR ---
Gave report to Cintia JASMINE pt is awake leaning over bed in tears stating she is having a hard moment with her back pain right now, pt on 3L of O2
--- NOTE | 2018-10-20 06:27 | NUR ---
Problems reprioritized. Patient report given to Cintia JASMINE, questions answered & plan of care reviewed with Alta JASMINE and Tanisha JASMINE.
[2018-10-20 07:00] VITALS: BP 166/80
--- NOTE | 2018-10-20 07:00 | NUR ---
Patient in room [facility] 350. I have received report from Alta JASMINE and had the opportunity to ask questions and assume patient care.
[2018-10-20] MEDS: nicotine 14mg patch - 24hr TD SCH (07:09)
[2018-10-20] MEDS: LIDOcaine 5% patch TP SCH (07:10)
[2018-10-20] MEDS: traMADol 50MG tablet PO PRN (07:10)
[2018-10-20] MEDS: lactobacillus rhamnosus 10,000 MMU CELLS/CAPSULE PO SCH (07:10)
[2018-10-20] MEDS: pantoprazole 40mg Tablet.DR PO SCH (07:10)
[2018-10-20] MEDS: duloxetine 30mg CAPSULE.DR PO SCH (07:11)
[2018-10-20] MEDS: loratadine 10mg tablet PO SCH (07:11)
[2018-10-20] MEDS: losartan 25mg tablet PO SCH (07:11)
[2018-10-20] MEDS: magnesium oxide 400mg tablet PO SCH (07:11)
[2018-10-20] MEDS: docusate sod 100mg capsule PO SCH (07:11)
[2018-10-20] MEDS: CefTRIAXone 2gm/D5W 50ml 50 ML IV SCH (07:12)
[2018-10-20] MEDS: heparin, porcine 5000 units/ml vial SQ SCH (07:21)
[2018-10-20] MEDS: K and/or MAG REPLACEMENT MC SCH (07:23)
[2018-10-20] MEDS ORDERED: methylPREDNISolone sod succ 125mg/2ml vial IV SCH (08:00)
[2018-10-20] MEDS: LORazepam 2 mg/ml vial IV PRN (10:13)
[2018-10-20 11:00] VITALS: BP 153/86
--- NOTE | 2018-10-20 12:23 | NUR ---
O2 Sat at rest on room air:_88__% If below 89%: Recovery O2 Sat at rest on _3__LPM:___%:__93_% via nc (mask/nasal cannula, etc..) No further documentation is necessary. If O2 Sat did not drop below 89% on room air,ambulate patient on room air. O2 Sat while ambulating on room air:___% Recovery O2 Sat while ambulating on ___LPM:___% No further documentation is necessary. If patient does not drop below 89% while ambulating, he/she does not qualify for home O2.
[2018-10-20] MEDS ORDERED: HYDR-4383 PO (12:24)
[2018-10-20] MEDS ORDERED: LEVO500T2 PO (12:24)
--- NOTE | 2018-10-20 15:05 | NUR ---
patient seen by Dr Schwarz is for discharge. All DC instructions given to patient . Prescription for norco given to patient . Antonio called into [facility]. Patient had O2 delivered to room. patient DC home via private car . Appears stable for DC
== END 2018-10-20 15:00 | disposition home or self-care (01) | DRG 189 ==
LOC: ER 07:55 → SUR 3N 13:16 → CMPBEDREQ 10-20 00:21
PROVIDERS: ADMIT Internal Medicine; ATTEND Internal Medicine
DX: J96.21 Acute and chronic respiratory failure with hypoxia (principal); J44.1 Chronic obstructive pulmonary disease with (acute) exacerbation; S22.43XA Multiple fractures of ribs, bilateral, initial encounter for closed fracture; E11.42 Type 2 diabetes mellitus with diabetic polyneuropathy; R09.02 Hypoxemia; F17.210 Nicotine dependence, cigarettes, uncomplicated; F12.90 Cannabis use, unspecified, uncomplicated; G89.4 Chronic pain syndrome; M54.5 Low back pain; I10 Essential (primary) hypertension; X58.XXXA Exposure to other specified factors, initial encounter; Z88.5 Allergy status to narcotic agent; Z88.8 Allergy status to other drugs, medicaments and biological substances; Z88.1 Allergy status to other antibiotic agents; Z82.49 Family history of ischemic heart disease and other diseases of the circulatory system; Z83.3 Family history of diabetes mellitus; Y93.89 Activity, other specified; Y92.89 Other specified places as the place of occurrence of the external cause; Y99.8 Other external cause status; Z71.6 Tobacco abuse counseling
CPT/HCPCS: 36415; 36600; 71260; 80053; 82803; 83605; 83735; 85018; 85025; 87040; 87070; 94640; 94760; 97110; 97116; 97162; 97530; 99285; G0378; J0696; J1644; J2060; J2930; Q9967

== ENCOUNTER 2019-03-06 06:37 | Day surgery (SDC) | payer MEDICARE, BC ==
[2019-02-13 15:09] LABS: BASOPHILS # (AUTO) 0.1 X10'3 (0-0.2); BASOPHILS % (AUTO) 0.8 % (0-1); EOSINOPHILS # (AUTO) 0.2 X10'3 (0-0.9); EOSINOPHILS % (AUTO) 1.1 % (0-6); LYMPHOCYTES # (AUTO) 2.2 X10'3 (1.1-4.8); MEAN CORPUSCULAR HEMOGLOBIN 30.2 PG (27.0-31.0); MEAN CORPUSCULAR HGB CONC 34.3 g/dL (33.0-36.5); MEAN CORPUSCULAR VOLUME 88.2 FL (78-98); MEAN PLATELET VOLUME 5.9 FL (7.4-10.4); MONOCYTES # (AUTO) 0.9 X10'3 (0-0.9); MONOCYTES % (AUTO) 6.2 % (2-12); NEUTROPHILS # (AUTO) 11.3 X10'3 (1.8-7.7); NEUTROPHILS % (AUTO) 76.9 % (42-75); PRE OP HEMATOCRIT 45.2 % (35.0-45.0); PRE OP HEMOGLOBIN 15.5 g/dL (12.0-16.0); PRE OP PLATELET COUNT 498 X10'3 (140-440); RED BLOOD COUNT 5.13 X10'6 (4.20-5.60); RED CELL DISTRIBUTION WIDTH 14.7 % (11.5-14.5)
[2019-02-13 15:23] LABS: ALBUMIN 3.3 G/DL (3.4-5.0); ALBUMIN/GLOBULIN RATIO 0.9 (1.1-1.5); ALKALINE PHOSPHATASE 123 IU/L (46-116); BLOOD UREA NITROGEN 16 MG/DL (7-18); BUN/CREATININE RATIO 18.8 (6.6-38.0); CALCIUM 9.3 MG/DL (8.5-10.1); CHLORIDE 103 MMOL/L (99-107); CREATININE 0.85 MG/DL (0.40-0.90); PRE OP ALT 34 U/L (30-65); PRE OP ANION GAP 2 (8-16); PRE OP AST 20 U/L (10-37); PRE OP BILIRUB, TOTAL 0.3 MG/DL (0.0-1.0); PRE OP GLUCOSE 78 MG/DL (70-104); PRE OP POTASSIUM 4.4 MMOL/L (3.4-5.1); PRE OP SODIUM 140 MMOL/L (135-145); TOTAL PROTEIN 6.8 G/DL (6.4-8.2); eGFR 68 ML/MIN
[~2019-03-06] VITALS: Ht 149.9 cm; Wt 62.6 kg
[~2019-03-06 06:37] MED LIST changes: +ALBU18HF2 INH; -ALBUTEROL IH; -AMIT-189 PO; -DIAZ5TAB4 PO; +DOCU100C40 PO; +FLUT1BLS4 IH; -FURO40TA4 PO; -IRBE75TA30 PO; +LOSA25TA41 PO; +MAGN500C16 PO; +MECL-111 PO; +MELA3TAB64 PO; +MULT-933 PO; -POTA10TA19 PO; +QUET-1 PO; +ROPI0.252 PO; +SENN-162 PO; +TRAM50TA2 PO; -VALA100027 PO; +albuterol 2.5 MG/3 ML nebule NEB ONE; +cefazolin/dext.iso 2gm/50ml 50 ML IV ONE; +famotidine 20mg tablet PO ONE; +ringers solution, lacted 1,000 ML IV SCH
[2019-03-06] MEDS ORDERED: BUPIVAcaine/PF 2.5mg/ml (0.25%) 10ml vial ONE (06:54)
[2019-03-06 07:00] VITALS: BP 154/80
[2019-03-06] MEDS ORDERED: ringers solution, lacted 1,000 ML IV SCH (07:36)
[2019-03-06] MEDS ORDERED: ondansetron/PF 4mg/2ml inj IV PRN (07:40)
[2019-03-06] MEDS ORDERED: morphine 4 MG/ML inj SYRINge IV PRN ×2 (07:40)
[2019-03-06] MEDS ORDERED: hydrALAZINE 20mg/ml inj. IV PRN (07:40)
[2019-03-06] MEDS ORDERED: labetalol 20mg/4ml (5mg/ml) syringe IV PRN (07:40)
[2019-03-06] MEDS ORDERED: fentaNYL/PF 50MCG/1 ML 2ML syringe IV PRN ×2 (07:40)
[2019-03-06] MEDS ORDERED: sevoflurane 250ml liquid IH ONE (09:10)
[2019-03-06] MEDS ORDERED: fentaNYL/PF 50MCG/1 ML 2ML syringe ONE (09:11)
[2019-03-06] MEDS ORDERED: propofol inj 20 ML IV ONE (09:12)
[2019-03-06] MEDS ORDERED: midazolam 2 mg/2 ml injection ONE (09:12)
[2019-03-06] MEDS ORDERED: LIDOcaine 2% (20mg/ml) 5ml vial ONE (09:12)
[2019-03-06 09:45] VITALS: BP 159/79
--- NOTE | 2019-03-06 09:45 | NUR ---
Received from OR via BED , accompanied by Anesthesiologist DR ALAN and report given by Anesthesiolgist. PATIENT WAKING UP, NO S/S OF PAIN, V/S WNL, NEUROVASCULAR CHECKS INTACT. PIV 20G TO LUE , SCD ON, DRESSING TO RIGHT ELBOW CDI.
[2019-03-06 09:55] VITALS: BP 142/82
[2019-03-06 10:05] VITALS: BP 131/75
[2019-03-06 10:15] VITALS: BP 124/79
--- NOTE | 2019-03-06 10:15 | NUR ---
PATIENT A&OX4, DENIES PAIN, V/S WNL, NEUROVASCULAR CHECKS INTACT. PIV 20G TO LUE D/C , SCD OFF, DRESSING TO RIGHT ELBOW CDI. iCE AND ELEVATION TO RUE. I HAVE REVIEWED D/C INSTRUCTIONS WITH PATIENT AND FAMILY AND THEY HAVE VERBALIZED UNDERSTANDING. PATIENT D/C HOME WITH ALL BELONGS AND FAMILY GAVE TRANSPORT HOME
== END 2019-03-06 10:15 | disposition home or self-care (01) ==
LOC: PRE-OP 06:37
PROVIDERS: ATTEND Orthopaedic Surgery Hand Surgery
DX: G56.21 Lesion of ulnar nerve, right upper limb (principal); F17.210 Nicotine dependence, cigarettes, uncomplicated; J44.9 Chronic obstructive pulmonary disease, unspecified; Z90.710 Acquired absence of both cervix and uterus; F32.9 Major depressive disorder, single episode, unspecified; F41.9 Anxiety disorder, unspecified; Z88.5 Allergy status to narcotic agent; I10 Essential (primary) hypertension; M19.90 Unspecified osteoarthritis, unspecified site; Z79.899 Other long term (current) drug therapy
CPT/HCPCS: 36415; 64718; 80053; 82948; 85025; 93005; 94640; 94760; J2001; J2250; J2704; J3010; J3490; A4215; A4618; A6449; J7120

== ENCOUNTER 2020-04-07 15:22 | Outpatient (CLI) | payer MEDICARE, BC ==
[~2020-04-07] VITALS: Ht 149.9 cm; Wt 47.6 kg
[~2020-04-07 15:22] MED LIST changes: -MECL-111 PO; +MECL-159 PO; +MELA3TAB39 PO; -MELA3TAB64 PO; -SENN-162 PO; +SENN-263 PO; -albuterol 2.5 MG/3 ML nebule NEB ONE; -cefazolin/dext.iso 2gm/50ml 50 ML IV ONE; -famotidine 20mg tablet PO ONE; -ringers solution, lacted 1,000 ML IV SCH
[2020-04-07] MEDS ORDERED: albuterol 2.5 MG/3 ML nebule NEB ONE (16:05)
== END 2020-04-07 23:59 | disposition home or self-care (01) ==
LOC: RT 15:22
PROVIDERS: ATTEND Internal Medicine Pulmonary Disease
DX: R94.2 Abnormal results of pulmonary function studies (principal); J44.9 Chronic obstructive pulmonary disease, unspecified
CPT/HCPCS: 94060; 94727; 94729; 94760

== ENCOUNTER → 2020-12-03 | Day surgery (SDC) | payer MEDICARE, BC ==
[2020-11-30 15:23] LABS: BASOPHILS # (AUTO) 0.1 X10'3 (0-0.2); BASOPHILS % (AUTO) 1.4 % (0-1); EOSINOPHILS # (AUTO) 0.3 X10'3 (0-0.9); EOSINOPHILS % (AUTO) 4.5 % (0-6); LYMPHOCYTES # (AUTO) 2.2 X10'3 (1.1-4.8); LYMPHOCYTES % (AUTO) 34.1 % (21-51); MEAN CORPUSCULAR HGB CONC 34.1 g/dL (33.0-36.5); MEAN CORPUSCULAR VOLUME 90.8 FL (78-98); MEAN PLATELET VOLUME 5.9 FL (7.4-10.4); MONOCYTES # (AUTO) 0.6 X10'3 (0-0.9); MONOCYTES % (AUTO) 8.9 % (2-12); NEUTROPHILS # (AUTO) 3.2 X10'3 (1.8-7.7); NEUTROPHILS % (AUTO) 51.1 % (42-75); PRE OP HEMATOCRIT 38.7 % (35.0-45.0); PRE OP HEMOGLOBIN 13.2 g/dL (12.0-16.0); PRE OP PLATELET COUNT 437 X10'3 (140-440); RED BLOOD COUNT 4.26 X10'6 (4.20-5.60); RED CELL DISTRIBUTION WIDTH 13.9 % (11.5-14.5)
[2020-11-30 15:36] LABS: ALBUMIN 3.2 G/DL (3.4-5.0); ALKALINE PHOSPHATASE 105 IU/L (46-116); BLOOD UREA NITROGEN 11 MG/DL (7-18); BUN/CREATININE RATIO 16.4 (6.6-38.0); CALCIUM 8.7 MG/DL (8.5-10.1); CHLORIDE 102 MMOL/L (99-107); CREATININE 0.67 MG/DL (0.40-0.90); PRE OP ALT 62 U/L (30-65); PRE OP ANION GAP 2 (8-16); PRE OP AST 33 U/L (10-37); PRE OP BILIRUB, TOTAL 0.2 MG/DL (0.0-1.0); PRE OP GLUCOSE 88 MG/DL (70-104); PRE OP POTASSIUM 3.7 MMOL/L (3.4-5.1); PRE OP SODIUM 136 MMOL/L (135-145); TOTAL CARBON DIOXIDE 31.7 MMOL/L (24-32); TOTAL PROTEIN 6.3 G/DL (6.4-8.2); eGFR 88 ML/MIN
[~2020-12-03] VITALS: Ht 144.8 cm; Wt 47.6 kg
[~2020-12-03] MED LIST changes: +ACET-890 PO; +ALPR0.5T9 PO; +AMLO5TAB16 PO; +ASCO100T12 PO; +BACL10TA2 PO; +BUPIVAcaine/PF 2.5 mg/ml (0.25%) 30ml vial ONE; +CALC300T4 PO; -DOCU100C40 PO; +DONE-46 PO; -DULO-31 PO; +EFF37.5XRC PO; +FEXO180T94 PO; -FLUT1BLS4 IH; +FLUT1BLS4 INH; +HYDR-3927 PO; -LIDO700A47 TD; -OMEP20TA23 PO; +OXCA300T16 PO; -QUET-1 PO; +RISP1TAB98 PO; -SENN-263 PO; +VALA100031 PO; +bacitracin 15gm ointment TP ONE; +cefazolin/dext.iso 2gm/100ml IV ONE; +famotidine 20mg tablet PO ONE; +marijuana; +ringers solution, lacted 1,000 ML IV SCH
== END | disposition home or self-care (01) ==
LOC: PAS 08:48
PROVIDERS: ATTEND Podiatrist Foot & Ankle Surgery
DX: M19.072 Primary osteoarthritis, left ankle and foot (principal); Z53.8 Procedure and treatment not carried out for other reasons; S61.402A Unspecified open wound of left hand, initial encounter; S61.401A Unspecified open wound of right hand, initial encounter; S81.802A Unspecified open wound, left lower leg, initial encounter; M20.12 Hallux valgus (acquired), left foot; M20.22 Hallux rigidus, left foot; M21.6X2 Other acquired deformities of left foot; M19.011 Primary osteoarthritis, right shoulder; M19.071 Primary osteoarthritis, right ankle and foot; Z90.710 Acquired absence of both cervix and uterus; Z98.890 Other specified postprocedural states; Z79.899 Other long term (current) drug therapy; Z79.2 Long term (current) use of antibiotics; F12.90 Cannabis use, unspecified, uncomplicated; F32.9 Major depressive disorder, single episode, unspecified; G89.29 Other chronic pain; J44.9 Chronic obstructive pulmonary disease, unspecified; I10 Essential (primary) hypertension; Z72.89 Other problems related to lifestyle; F17.210 Nicotine dependence, cigarettes, uncomplicated; Z96.659 Presence of unspecified artificial knee joint; Z88.5 Allergy status to narcotic agent; Z88.8 Allergy status to other drugs, medicaments and biological substances; X58.XXXA Exposure to other specified factors, initial encounter; Y93.89 Activity, other specified; Y92.89 Other specified places as the place of occurrence of the external cause; Y99.8 Other external cause status
CPT/HCPCS: 36415; 80053; 85025; 93005; J3490; J7120

== ENCOUNTER 2021-03-24 14:10 | Emergency (ER) | payer MEDICARE, BC ==
[~2021-03-24] VITALS: Ht 149.9 cm; Wt 52.0 kg
[~2021-03-24 14:10] MED LIST changes: -BUPIVAcaine/PF 2.5 mg/ml (0.25%) 30ml vial ONE; -bacitracin 15gm ointment TP ONE; -cefazolin/dext.iso 2gm/100ml IV ONE; -famotidine 20mg tablet PO ONE; -ringers solution, lacted 1,000 ML IV SCH
[2021-03-24 14:28] VITALS: BP 201/92
[2021-03-24 15:17] LABS: BASOPHILS # (AUTO) 0.1 X10'3 (0-0.2); BASOPHILS % (AUTO) 1.3 % (0-1); EOSINOPHILS # (AUTO) 0.2 X10'3 (0-0.9); EOSINOPHILS % (AUTO) 2.8 % (0-6); HEMATOCRIT 42.1 % (35.0-45.0); HEMOGLOBIN 14.6 g/dl (12.0-16.0); LYMPHOCYTES # (AUTO) 2.3 X10'3 (1.1-4.8); LYMPHOCYTES % (AUTO) 27.8 % (21-51); MEAN CORPUSCULAR HEMOGLOBIN 30.1 PG (27.0-31.0); MEAN CORPUSCULAR HGB CONC 34.8 g/dL (33.0-36.5); MEAN CORPUSCULAR VOLUME 86.6 FL (78-98); MONOCYTES # (AUTO) 0.5 X10'3 (0-0.9); MONOCYTES % (AUTO) 6.3 % (2-12); NEUTROPHILS # (AUTO) 5.1 X10'3 (1.8-7.7); NEUTROPHILS % (AUTO) 61.8 % (42-75); PLATELET COUNT 389 X10'3 (140-440); RED BLOOD COUNT 4.86 X10'6 (4.20-5.60); RED CELL DISTRIBUTION WIDTH 13.3 % (11.5-14.5); WHITE BLOOD COUNT 8.3 X10'3 (4.5-11.0)
[2021-03-24 15:31] LABS: ALANINE AMINOTRANSFERASE 40 U/L (12-78); ALBUMIN 3.7 G/DL (3.4-5.0); ALBUMIN/GLOBULIN RATIO 1.1 (1.1-1.5); ALKALINE PHOSPHATASE 137 IU/L (46-116); ANION GAP 7 (8-16); ASPARTATE AMINO TRANSFERASE 24 U/L (10-37); BILIRUBIN,TOTAL 0.2 MG/DL (0.1-1.0); BLOOD UREA NITROGEN 17 MG/DL (7-18); BUN/CREATININE RATIO 20.5 (6.6-38.0); CALCIUM 10.3 MG/DL (8.5-10.1); CHLORIDE 99 MMOL/L (99-107); CREATININE 0.83 MG/DL (0.40-0.90); GLUCOSE 89 MG/DL (70-104); POTASSIUM 3.9 MMOL/L (3.5-5.1); SODIUM 137 MMOL/L (135-145); TOTAL CARBON DIOXIDE 30.8 MMOL/L (24-32); TOTAL PROTEIN 7.1 G/DL (6.4-8.2); eGFR 69 ML/MIN
[2021-03-24 15:37] LABS: MAGNESIUM 2.1 MG/DL (1.5-2.4)
== END 2021-03-24 22:30 | disposition left against medical advice (07) ==
LOC: ER 14:10
DX: I10 Essential (primary) hypertension (principal); E11.42 Type 2 diabetes mellitus with diabetic polyneuropathy; J44.9 Chronic obstructive pulmonary disease, unspecified; G89.29 Other chronic pain; Z72.89 Other problems related to lifestyle; Z88.5 Allergy status to narcotic agent; Z79.899 Other long term (current) drug therapy; Z53.21 Procedure and treatment not carried out due to patient leaving prior to being seen by health care provider
CPT/HCPCS: 36415; 71045; 80053; 83735; 83880; 85025; 93005; 99285

== ENCOUNTER 2022-12-15 09:32 | Day surgery (SDC) | payer MEDICARE, BC ==
[2022-12-15] VITALS (14 sets, daily range): BP systolic 133–152; BP diastolic 69–85
[~2022-12-15] VITALS: Ht 149.9 cm; Wt 62.0 kg
[~2022-12-15 09:32] MED LIST changes: -ALPR0.5T9 PO; +AZEL23SP BOTHNARES; +CLON-473 PO; +DICL20GE TOP; +DOCU100C40 PO; -FEXO180T94 PO; -HYDR-3927 PO; +HYDR-3973 PO; -MAGN500C16 PO; +MAGN500C4 PO; +OLAN20TA19 PO; -RISP1TAB98 PO; +ROSU20TA2 PO; -VALA100031 PO; +[UNRECOGNIZED DRUG - OTHER] INH; +albuterol 2.5 MG/3 ML nebule NEB ONE; +cefazolin 2gm/D5W 100mL 100 ML IV ONE; +famotidine 20mg tablet PO ONE; +ringers solution, lacted 1,000 ML IV SCH; +sevoflurane 250ml liquid IH ONE
--- NOTE | 2022-12-15 10:48 | NUR ---
MADE SEVERAL ATTEMPTS TO RECORD MEDICATION ADMINISTRATION FOR THIS PATIENT. SHE IS A POOR HISTORIAN.
[2022-12-15 11:10] LABS: BASOPHILS # (AUTO) 0.1 X10'3 (0-0.2); BASOPHILS % (AUTO) 0.8 % (0-1); EOSINOPHILS # (AUTO) 0.4 X10'3 (0-0.9); EOSINOPHILS % (AUTO) 3.7 % (0-6); LYMPHOCYTES # (AUTO) 2.4 X10'3 (1.1-4.8); LYMPHOCYTES % (AUTO) 22.3 % (21-51); MEAN CORPUSCULAR HEMOGLOBIN 30.3 PG (27.0-31.0); MEAN CORPUSCULAR HGB CONC 33.5 g/dL (33.0-36.5); MEAN CORPUSCULAR VOLUME 90.3 FL (78-98); MEAN PLATELET VOLUME 6.9 FL (7.4-10.4); MONOCYTES # (AUTO) 0.6 X10'3 (0-0.9); MONOCYTES % (AUTO) 5.7 % (2-12); NEUTROPHILS # (AUTO) 7.4 X10'3 (1.8-7.7); NEUTROPHILS % (AUTO) 67.5 % (42-75); PRE OP HEMATOCRIT 44.3 % (35.0-45.0); PRE OP HEMOGLOBIN 14.9 g/dL (12.0-16.0); PRE OP PLATELET COUNT 324 X10'3 (140-440); RED BLOOD COUNT 4.91 X10'6 (4.20-5.60); RED CELL DISTRIBUTION WIDTH 15.1 % (11.5-14.5)
[2022-12-15 11:18] LABS: PRE OP PARTIAL THROMB. TIME 29 SECONDS (22-32)
[2022-12-15 11:19] LABS: ALBUMIN/GLOBULIN RATIO 1.1 (1.1-1.5); ALKALINE PHOSPHATASE 139 IU/L (46-116); BLOOD UREA NITROGEN 20 MG/DL (7-18); BUN/CREATININE RATIO 22.2 (10.0-20.0); C-REACTIVE PROTEIN 0.54 MG/DL (0.0-0.5); CALCIUM 9.4 MG/DL (8.5-10.1); CHLORIDE 100 MMOL/L (99-107); PRE OP ALT 36 U/L (30-65); PRE OP ANION GAP 11 (8-16); PRE OP AST 28 U/L (10-37); PRE OP BILIRUB, TOTAL 0.3 MG/DL (0.0-1.0); PRE OP GLUCOSE 92 MG/DL (70-104); PRE OP SODIUM 137 MMOL/L (135-145); TOTAL CARBON DIOXIDE 25.7 MMOL/L (24-32); TOTAL PROTEIN 7.7 G/DL (6.4-8.2); eGFR 62 ML/MIN
[2022-12-15] MEDS ORDERED: vancomycin 1,000mg inj ONE (11:59)
[2022-12-15] MEDS ORDERED: fentaNYL/PF 50MCG/1 ML 2ML syringe ONE ×2 (13:29→13:30)
[2022-12-15] MEDS ORDERED: midazolam 1 mg/ML 2ml injection ONE (13:30)
[2022-12-15] MEDS ORDERED: BUPIVAcaine/PF 2.5 mg/ml (0.25%) 30ml vial ONE (14:22)
[2022-12-15] MEDS ORDERED: propofol inj 20 ML IV ONE (14:34)
[2022-12-15] MEDS ORDERED: dexamethasone sod phosphate 4mg/ml inj. ONE (14:35)
[2022-12-15] MEDS ORDERED: ondansetron/PF 4mg/2ml inj ONE (14:35)
[2022-12-15] MEDS ORDERED: acetaminophen 1,000mg/100ml IV 100 ML IV ONE (14:37)
--- NOTE | 2022-12-15 14:54 | NUR ---
Received from OR via BRITNEY, accompanied by Anesthesiologist DR AGUIRRE and report given by Anesthesiologist AND COMMERCIAL SOLAR SALES CONSULTANT. PT W/LMA IN PLACE, NO S/S OF DISTRESS/DISCOMFORT. RIGHT ARM FROM ABOVE FINGERS TO ABOVE ELBOW IN SLING W/SPLINT AND KRISTIAN WRAP COVERING INCISION/DRSG CDI. FINGERS PWD, UROLOGIST 1-2 SECONDS. PT AWAKENED AFTER A FEW MINUTES AND LMA D/CD. PT TOLERATED WELL, PT DROWSY, RESTING. Addendum: 12/15/22 at 1618 by Camille Martin RN Amended: Links added.
[2022-12-15] MEDS ORDERED: HYDROmorphone/PF 0.2 MG/ML SYRINGE IV PRN ×2 (15:10)
[2022-12-15] MEDS ORDERED: ringers solution, lacted 1,000 ML IV SCH (15:10)
[2022-12-15] MEDS ORDERED: meperidine/PF 25mg/ml syringe IV PRN ×3 (15:10)
[2022-12-15] MEDS ORDERED: ondansetron/PF 4mg/2ml inj IV PRN (15:10)
[2022-12-15] MEDS ORDERED: HYDROcodone/acetaminophen 10/325mg tab PO ONE (15:50)
--- NOTE | 2022-12-15 17:04 | NUR ---
PT STATES PAIN IS TOLERABLE. PT UP AND ABLE TO AMBULATE SAFELY, VOIDED X 1. D/C INSTRUCTIONS GIVEN AND GONE OVER W/PT WHO VERBALIZED UNDERSTANDING. PT D/CD TO HOME VIA W/C TO PRIVATE VEHICLE W/O INCIDENT. Addendum: 12/15/22 at 1737 by Camille Martin RN Amended: Links added.
== END 2022-12-15 17:04 | disposition home or self-care (01) ==
LOC: PAS 09:32
PROVIDERS: ATTEND Specialist
DX: M71.121 Other infective bursitis, right elbow (principal); J44.9 Chronic obstructive pulmonary disease, unspecified; I10 Essential (primary) hypertension; M19.021 Primary osteoarthritis, right elbow; M19.011 Primary osteoarthritis, right shoulder; M19.072 Primary osteoarthritis, left ankle and foot; M19.071 Primary osteoarthritis, right ankle and foot; G89.29 Other chronic pain; F17.210 Nicotine dependence, cigarettes, uncomplicated; F32.A Depression, unspecified; Z96.653 Presence of artificial knee joint, bilateral; Z98.890 Other specified postprocedural states; Z88.8 Allergy status to other drugs, medicaments and biological substances; Z79.899 Other long term (current) drug therapy; Z90.710 Acquired absence of both cervix and uterus; Z79.01 Long term (current) use of anticoagulants
CPT/HCPCS: 24105; 36415; 71045; 80053; 85025; 85610; 85651; 85730; 86140; 86885; 86900; 86901; 94640; 94760; J0131; J0690; J1100; J2175; J2250; J2405; J2704; J3010; J3370; J3490; J7030; J7120; Z7506; Z7508; Z7512; 93005; A4215; A4618; A6449; A6455; A7000

== ENCOUNTER 2023-01-16 12:49 | Outpatient (CLI) | payer MEDICARE, BC ==
[~2023-01-16 12:49] MED LIST changes: -albuterol 2.5 MG/3 ML nebule NEB ONE; -cefazolin 2gm/D5W 100mL 100 ML IV ONE; -famotidine 20mg tablet PO ONE; -ringers solution, lacted 1,000 ML IV SCH; -sevoflurane 250ml liquid IH ONE
[2023-01-22] MEDS ORDERED: VENL75TA4 PO (11:31)
[2023-01-22] MEDS ORDERED: ONDA4TAB12 PO (11:31)
[2023-01-25] MEDS ORDERED: OXYC-145 PO (14:50)
[2023-01-25] MEDS ORDERED: ASPI-1094 PO (16:14)
[2023-01-25] MEDS ORDERED: SULF1TAB45 PO (17:03)
== END 2023-01-16 23:59 | disposition home or self-care (01) ==
LOC: RAD 12:49
PROVIDERS: ATTEND Specialist
DX: M71.121 Other infective bursitis, right elbow (principal); M25.521 Pain in right elbow
CPT/HCPCS: 73221

== ENCOUNTER 2023-01-18 11:11 | Inpatient (IN) | payer MEDICARE, BC ==
[~2023-01-18] VITALS: Ht 149.9 cm; Wt 61.2 kg
[~2023-01-18 11:11] MED LIST changes: +cefazolin 2gm/D5W 100mL 100 ML IV ONE; +famotidine 20mg tablet PO ONE
[2023-01-18] MEDS ORDERED: ondansetron/PF 4mg/2ml inj IV PRN (11:40)
[2023-01-18] MEDS ORDERED: HYDROmorphone/PF 0.2 MG/ML SYRINGE IV PRN ×3 (11:40→14:35)
[2023-01-18] MEDS ORDERED: fentaNYL/PF 50MCG/1 ML 2ML syringe IV PRN ×2 (11:40)
[2023-01-18] MEDS ORDERED: hydrALAZINE 20mg/ml inj. IV PRN (11:40)
[2023-01-18] MEDS ORDERED: ringers solution, lacted 1,000 ML IV SCH (11:40)
[2023-01-18] MEDS ORDERED: labetalol 20mg/4ml (5mg/ml) syringe IV PRN (11:40)
[2023-01-18] MEDS: ringers solution, lacted 1,000 ML IV SCH ×2 (11:55→17:48)
[2023-01-18 12:05] LABS: BASOPHILS # (AUTO) 0.1 X10'3 (0-0.2); BASOPHILS % (AUTO) 0.5 % (0-1); EOSINOPHILS # (AUTO) 0.3 X10'3 (0-0.9); EOSINOPHILS % (AUTO) 3.3 % (0-6); LYMPHOCYTES # (AUTO) 1.6 X10'3 (1.1-4.8); LYMPHOCYTES % (AUTO) 16.1 % (21-51); MEAN CORPUSCULAR HEMOGLOBIN 31.1 PG (27.0-31.0); MEAN CORPUSCULAR HGB CONC 35.4 g/dL (33.0-36.5); MEAN CORPUSCULAR VOLUME 87.8 FL (78-98); MONOCYTES # (AUTO) 0.8 X10'3 (0-0.9); MONOCYTES % (AUTO) 7.6 % (2-12); NEUTROPHILS # (AUTO) 7.2 X10'3 (1.8-7.7); NEUTROPHILS % (AUTO) 72.5 % (42-75); PRE OP HEMATOCRIT 37.3 % (35.0-45.0); PRE OP HEMOGLOBIN 13.2 g/dL (12.0-16.0); PRE OP PLATELET COUNT 359 X10'3 (140-440); RED BLOOD COUNT 4.24 X10'6 (4.20-5.60); RED CELL DISTRIBUTION WIDTH 13.9 % (11.5-14.5)
[2023-01-18 12:16] LABS: APTT 31 SECONDS (22-32)
[2023-01-18 12:19] LABS: ALBUMIN 3.3 G/DL (3.4-5.0); ALKALINE PHOSPHATASE 141 IU/L (46-116); BLOOD UREA NITROGEN 16 MG/DL (7-18); BUN/CREATININE RATIO 19.5 (10.0-20.0); CALCIUM 8.9 MG/DL (8.5-10.1); CHLORIDE 92 MMOL/L (99-107); CREATININE 0.82 MG/DL (0.40-0.90); PRE OP ALT 38 U/L (30-65); PRE OP ANION GAP 8 (8-16); PRE OP AST 30 U/L (10-37); PRE OP BILIRUB, TOTAL 0.2 MG/DL (0.0-1.0); PRE OP GLUCOSE 93 MG/DL (70-104); PRE OP POTASSIUM 4.5 MMOL/L (3.4-5.1); TOTAL CARBON DIOXIDE 24.7 MMOL/L (24-32); TOTAL PROTEIN 6.7 G/DL (6.4-8.2); eGFR 70 ML/MIN
[2023-01-18 12:20] LABS: PRE OP SODIUM 125 MMOL/L (135-145)
--- NOTE | 2023-01-18 14:28 | NUR ---
PATIENT CAME TO THE PAS UNIT AT 1130. IV WAS INITIATED AND LABS WERE DRAWN. PATIENT'S SODIUM LEVEL WAS 125. DID A REDRAW AND THE SECOND LAB WAS 124. DR NORTH CANCELED THE PATIENT'S SURGERY AND CALLED THE HOSPITALIST TO ADMIT HER. WAITING FOR A ROOM FOR THIS PATIENT.
[2023-01-18] MEDS ORDERED: potassium Cl 20 mEq SR tablet PO PRN ×2 (14:35)
[2023-01-18] MEDS ORDERED: magnesium hydroxide 30ml (MOM) UD suspension PO PRN (14:35)
[2023-01-18] MEDS ORDERED: magnesium Cl slow-release 64mg tablet PO PRN (14:35)
[2023-01-18] MEDS ORDERED: HYDROcodone/acetaminophen 5mg/325mg tablet PO PRN (14:35)
[2023-01-18] MEDS ORDERED: magnesium 4gm in 100ml NS 100 ML IV PRN (14:35)
[2023-01-18] MEDS ORDERED: mag hydrox/Alum hydrox/simeth 30ml oral suspension PO PRN (14:35)
[2023-01-18] MEDS ORDERED: potassium Cl 40MEQ/1/2NS 520ml 520 ML IV PRN (14:35)
[2023-01-18] MEDS ORDERED: magnesium 2GM in 50ml NS 50 ML IV PRN (14:35)
[2023-01-18] MEDS ORDERED: acetaminophen 325mg tablet PO PRN ×2 (14:35→17:00)
[2023-01-18 15:33] LABS: MAGNESIUM 1.5 MG/DL (1.5-2.4)
[2023-01-18] MEDS ORDERED: [UNRECOGNIZED DRUG - OTHER] INH PRN (16:00)
[2023-01-18 16:40] VITALS: BP 189/92; PULSE 69; RESP 20; TEMP 98; O2SAT 95
[2023-01-18] MEDS ORDERED: traMADol 50MG tablet PO PRN (17:00)
[2023-01-18] MEDS: normal saline 1000ml 1,000 ML IV SCH (17:30)
--- NOTE | 2023-01-18 18:10 | NUR ---
Patient in room ORTHO 4007. I have received report from KENROY Fernandes and had the opportunity to ask questions and assume patient care.
--- NOTE | 2023-01-18 18:27 | NUR ---
Problems reprioritized. Patient report given, questions answered & plan of care reviewed with KENROY Villalobos.
[2023-01-18 18:38] VITALS: BP 186/92; PULSE 63; RESP 16; TEMP 97.8; O2SAT 95
[2023-01-18] MEDS: K and/or MAG REPLACEMENT MC SCH (18:38)
[2023-01-18] MEDS: cloNIDine 0.1 mg tablet PO SCH (19:06)
--- NOTE | 2023-01-18 19:35 | NUR ---
Problems reprioritized. Patient report given, questions answered & plan of care reviewed with KENROY Garay.
[2023-01-18 19:38] VITALS: BP 171/97
[2023-01-18] MEDS: docusate sod 100mg capsule PO SCH (19:58)
[2023-01-18] MEDS: heparin, porcine 5000 units/ml vial SQ SCH (19:59)
[2023-01-18 20:00] VITALS: RESP 14; O2SAT 95
[2023-01-18] MEDS ORDERED: HYDROcodone/acetaminophen 10/325mg tab PO PRN (20:00)
[2023-01-18] MEDS ORDERED: docusate sod 100mg capsule PO SCH (20:00)
[2023-01-18] MEDS: baclofen 10mg tablet PO SCH (20:15)
[2023-01-18] MEDS: oxcarbazepine 150mg tablet PO SCH (20:15)
[2023-01-18] MEDS: ondansetron/PF 4mg/2ml inj IV PRN (20:25)
[2023-01-18] MEDS ORDERED: ROSUVASTATIN CALCIUM 5 MG TABLET PO SCH (21:00)
[2023-01-18] MEDS ORDERED: ROPINIRole 1mg tablet PO SCH (21:00)
[2023-01-18] MEDS ORDERED: Melatonin 3mg tablet PO SCH (21:00)
[2023-01-18] MEDS ORDERED: meclizine 12.5mg tablet PO PRN (21:00)
[2023-01-18] MEDS ORDERED: calcium carbonate 500mg chew tablet PO SCH (21:00)
[2023-01-18] MEDS ORDERED: losartan 25mg tablet PO SCH (21:00)
[2023-01-18 22:44] VITALS: BP 152/84; PULSE 56; RESP 14; TEMP 97.5; O2SAT 95
[2023-01-19] VITALS (7 sets, daily range): BP systolic 130–177; BP diastolic 82–94; PULSE 59–83; RESP 16–20; TEMP 97.8–98.2; O2SAT 93–95
[2023-01-19] MEDS: normal saline 1000ml 1,000 ML IV SCH ×2 (00:44→10:35)
[2023-01-19] MEDS: albuterol 2.5 MG/3 ML nebule NEB PRN ×2 (02:07→07:40)
[2023-01-19] MEDS: ondansetron/PF 4mg/2ml inj IV PRN (03:54)
[2023-01-19 06:20] LABS: ALBUMIN 3.1 G/DL (3.4-5.0); ANION GAP 9 (8-16); BLOOD UREA NITROGEN 12 MG/DL (7-18); CALCIUM 8.9 MG/DL (8.5-10.1); CHLORIDE 96 MMOL/L (99-107); CREATININE 0.75 MG/DL (0.40-0.90); GLUCOSE 120 MG/DL (70-104); MAGNESIUM 1.4 MG/DL (1.5-2.4); POTASSIUM 3.8 MMOL/L (3.5-5.1); SODIUM 131 MMOL/L (135-145); TOTAL CARBON DIOXIDE 26.4 MMOL/L (24-32); eGFR 77 ML/MIN
--- NOTE | 2023-01-19 06:39 | NUR ---
Patient in room [facility]TH[facility] 4007. I have received report from Tanisha JASMINE and had the opportunity to ask questions and assume patient care.
--- NOTE | 2023-01-19 07:01 | NUR ---
Per Dr Jeffries he is planning on surgery for Sunday, Patient can be discharged from his point but leaving that up to the hospitalist. If patients is discharged no need for antibiotics, and patient will follow up with [facility] for labs on Sunday prior to Tuesdays surgery.
[2023-01-19] MEDS ORDERED: UMECLIDIN IH SCH (08:00)
[2023-01-19] MEDS ORDERED: magnesium oxide 400mg tablet PO SCH (08:00)
[2023-01-19] MEDS ORDERED: VILANTER IH SCH (08:00)
[2023-01-19] MEDS ORDERED: MELOXICAM 7.5 MG TABLET PO SCH (08:00)
[2023-01-19] MEDS: docusate sod 100mg capsule PO SCH ×2 (08:00→11:41)
[2023-01-19] MEDS: K and/or MAG REPLACEMENT MC SCH (08:00)
[2023-01-19] MEDS ORDERED: FLUTICASONE NS PRN (08:00)
[2023-01-19] MEDS ORDERED: ASCORBIC ACID 100 MG PO SCH (08:00)
[2023-01-19] MEDS ORDERED: FLUTICASONE IH SCH (08:00)
[2023-01-19] MEDS ORDERED: amLODIPine 5mg tablet PO SCH (08:00)
[2023-01-19] MEDS ORDERED: AZELASTINE NS PRN (08:00)
[2023-01-19] MEDS ORDERED: multivitamins, therapeutics tablet PO SCH (08:00)
--- NOTE | 2023-01-19 08:35 | NUR ---
PAGER ID: [phone] MESSAGE: Melanie Pacheco [phone] patient very upset wants Flonase please call
[2023-01-19] MEDS: cloNIDine 0.1 mg tablet PO SCH ×2 (08:43→13:05)
[2023-01-19] MEDS: baclofen 10mg tablet PO SCH ×2 (08:43→13:05)
[2023-01-19] MEDS: heparin, porcine 5000 units/ml vial SQ SCH (08:44)
[2023-01-19] MEDS: oxcarbazepine 150mg tablet PO SCH ×2 (08:44→13:06)
[2023-01-19 09:49] LABS: CLARITY,URINE CLEAR (Clear); COLOR,URINE STRAW (Yellow); GLUCOSE, URINE NEGATIVE (Neg); KETONES,URINE TRACE mg/dl (Neg); LEUKOCYTE ESTERASE ,URINE NEGATIVE (Neg); NITRITES, URINE NEGATIVE (Neg); OCCULT BLOOD,URINE TRACE-INTACT (Neg); PH,URINE 7.5 (4.8-8.0); PROTEIN,URINE 30 mg/dl (Neg); UROBILINOGEN,URINE 0.2 E.U/dL (0.2-1.0)
[2023-01-19 09:56] LABS: UA COLLECTION TYPE CLN CATCH MIDSTREAM
[2023-01-19 09:57] LABS: BACTERIA,URINE 1+ /HPF (Neg); RBC,URINE 0-2 /HPF (0-2); SQUAMOUS EPITHELIAL CELL,UR MODERATE /LPF (FEW); WBC,URINE 0-4 /HPF (0-4)
--- NOTE | 2023-01-19 13:14 | NUR ---
relieving RN for break, pt is resting quietly on delaney, at bedside, pt did not eat lunch. She stated she is ready to go home
--- NOTE | 2023-01-19 13:30 | NUR ---
Patients discharge instructions reviewed with patient and patient verbalized understanding. Patients IV dc'd cannula intact. Patient instructed to call Dr Jeffries's office for follow up labs on Sunday and for surgery on Sunday. Patient states she has all her belongings. Patient was taken to vehicle where spouse was waiting for her.
[2023-01-22] MEDS ORDERED: ONDA4TAB12 PO (11:31)
[2023-01-22] MEDS ORDERED: VENL75TA4 PO (11:31)
[2023-01-25] MEDS ORDERED: OXYC-145 PO (14:50)
[2023-01-25] MEDS ORDERED: ASPI-1094 PO (16:14)
[2023-01-25] MEDS ORDERED: SULF1TAB45 PO (17:03)
== END 2023-01-19 14:01 | disposition home or self-care (01) | DRG 641 ==
LOC: PAS 11:11 → ORTHO 4S 14:00
PROVIDERS: ADMIT Family Medicine; ATTEND Specialist
DX: E87.1 Hypo-osmolality and hyponatremia (principal); F03.93 Unspecified dementia, unspecified severity, with mood disturbance; M71.121 Other infective bursitis, right elbow; E78.5 Hyperlipidemia, unspecified; F17.210 Nicotine dependence, cigarettes, uncomplicated; F31.9 Bipolar disorder, unspecified; T43.8X5A Adverse effect of other psychotropic drugs, initial encounter; Z96.653 Presence of artificial knee joint, bilateral; G62.9 Polyneuropathy, unspecified; I12.9 Hypertensive chronic kidney disease with stage 1 through stage 4 chronic kidney disease, or unspecified chronic kidney disease; J44.9 Chronic obstructive pulmonary disease, unspecified; N18.9 Chronic kidney disease, unspecified; Z80.9 Family history of malignant neoplasm, unspecified; Z88.8 Allergy status to other drugs, medicaments and biological substances; Z79.899 Other long term (current) drug therapy; Z83.3 Family history of diabetes mellitus; Z82.49 Family history of ischemic heart disease and other diseases of the circulatory system; Y92.89 Other specified places as the place of occurrence of the external cause; Z71.6 Tobacco abuse counseling
CPT/HCPCS: 36415; 71045; 73221; 80048; 80053; 81001; 82948; 83735; 84295; 85025; 85610; 85730; 93005; 94640; 94760; A4615; G0378; J0690; J1644; J2405; J7030; J7120

== ENCOUNTER 2023-02-27 06:10 | Inpatient (IN) | payer MEDICARE, BC ==
[2023-02-22 14:36] LABS: BILIRUBIN,URINE NEGATIVE (Neg); CLARITY,URINE CLEAR (Clear); COLOR,URINE YELLOW (Yellow); GLUCOSE, URINE NEGATIVE (Neg); KETONES,URINE NEGATIVE (Neg); LEUKOCYTE ESTERASE ,URINE NEGATIVE (Neg); NITRITES, URINE NEGATIVE (Neg); OCCULT BLOOD,URINE NEGATIVE (Neg); PROTEIN,URINE TRACE mg/dl (Neg); UROBILINOGEN,URINE 0.2 E.U/dL (0.2-1.0)
[2023-02-22 14:38] LABS: UA COLLECTION TYPE CLN CATCH MIDSTREAM
[2023-02-22 14:40] LABS: BASOPHILS # (AUTO) 0.1 X10'3 (0-0.2); BASOPHILS % (AUTO) 1.2 % (0-1); EOSINOPHILS # (AUTO) 0.3 X10'3 (0-0.9); EOSINOPHILS % (AUTO) 3.4 % (0-6); LYMPHOCYTES # (AUTO) 2.2 X10'3 (1.1-4.8); LYMPHOCYTES % (AUTO) 29.3 % (21-51); MEAN CORPUSCULAR HGB CONC 33.4 g/dL (33.0-36.5); MEAN CORPUSCULAR VOLUME 89.8 FL (78-98); MONOCYTES # (AUTO) 0.7 X10'3 (0-0.9); MONOCYTES % (AUTO) 9.1 % (2-12); NEUTROPHILS # (AUTO) 4.2 X10'3 (1.8-7.7); PRE OP HEMATOCRIT 35.1 % (35.0-45.0); PRE OP HEMOGLOBIN 11.7 g/dL (12.0-16.0); PRE OP PLATELET COUNT 483 X10'3 (140-440); PRE OP WHITE BLOOD COUNT 7.4 10'3 (4.8-10.8); RED CELL DISTRIBUTION WIDTH 14.7 % (11.5-14.5)
[2023-02-22 14:49] LABS: ALBUMIN 2.6 G/DL (3.4-5.0); ALBUMIN/GLOBULIN RATIO 0.7 (1.1-1.5); ALKALINE PHOSPHATASE 195 IU/L (46-116); BLOOD UREA NITROGEN 22 MG/DL (7-18); CALCIUM 9.5 MG/DL (8.5-10.1); CHLORIDE 100 MMOL/L (99-107); CREATININE 0.88 MG/DL (0.40-0.90); PRE OP ALT 30 U/L (30-65); PRE OP ANION GAP 4 (8-16); PRE OP AST 27 U/L (10-37); PRE OP BILIRUB, TOTAL 0.2 MG/DL (0.0-1.0); PRE OP GLUCOSE 90 MG/DL (70-104); PRE OP POTASSIUM 4.3 MMOL/L (3.4-5.1); PRE OP SODIUM 134 MMOL/L (135-145); TOTAL CARBON DIOXIDE 29.8 MMOL/L (24-32); TOTAL PROTEIN 6.2 G/DL (6.4-8.2); eGFR 64 ML/MIN
[2023-02-22 14:50] LABS: PRE OP INR 0.9 INR
[2023-02-22 14:53] LABS: BACTERIA,URINE FEW /HPF (Neg); MUCUS STRANDS NONE SEEN /LPF (Neg); RBC,URINE NONE SEEN /HPF (0-2); SQUAMOUS EPITHELIAL CELL,UR FEW /LPF (FEW); WBC,URINE 0-4 /HPF (0-4)
[2023-02-23 11:55] LABS: C-REACTIVE PROTEIN 4.75 MG/DL (0.0-0.5)
[~2023-02-27] VITALS: Ht 149.9 cm; Wt 66.2 kg
[2023-02-27] VITALS (53 sets, daily range): BP systolic 128–227; BP diastolic 63–107; PULSE 50–77; RESP 12–25; TEMP 97.5–98.4; O2SAT 87–100
[~2023-02-27 06:10] MED LIST changes: +ACET-1008 PO; -ACET-890 PO; -ASCO100T12 PO; +ASCO500C18 PO; +ASPI-1094 PO; -CALC300T4 PO; +CALC600T22 PO; +DOXY150T5 PO; -EFF37.5XRC PO; +ERGO400C PO; -GABA-534 PO; +GABA-535 PO; +HYDR-3972 PO; -HYDR-3973 PO; +MAGN400C PO; -MAGN500C4 PO; +MARIJUANA INH; -MECL-159 PO; +MECL-302 PO; -MELA3TAB39 PO; +MELA5TAB12 PO; +MULT-1085 PO; -MULT-933 PO; -ONDA4FIL5 PO; +ONDA4TAB12 PO; +QUET-1 PO; -ROSU20TA2 PO; +ROSU20TA73 PO; +SULF1TAB45 PO; +UBID200C18 PO; -[UNRECOGNIZED DRUG - OTHER] INH; +[UNRECOGNIZED DRUG - REMARK] PO; +albuterol 2.5 MG/3 ML nebule NEB ONE; -marijuana; +ringers solution, lacted 1,000 ML IV SCH
[2023-02-27] MEDS ORDERED: vancomycin 1,000mg inj ONE (06:51)
[2023-02-27] MEDS ORDERED: BUPIVAcaine/PF 2.5 mg/ml (0.25%) 30ml vial ONE (06:51)
[2023-02-27] MEDS ORDERED: sevoflurane 250ml liquid IH ONE (08:00)
[2023-02-27] MEDS ORDERED: fentaNYL/PF 50MCG/1 ML 2ML syringe ONE ×2 (08:03→08:29)
[2023-02-27] MEDS ORDERED: midazolam 1 mg/ML 2ml injection ONE (08:04)
[2023-02-27] MEDS ORDERED: ondansetron/PF 4mg/2ml inj IV PRN ×2 (08:10→09:40)
[2023-02-27] MEDS ORDERED: morphine 2 MG/ML inj. syringe IV PRN (08:10)
[2023-02-27] MEDS ORDERED: ringers solution, lacted 1,000 ML IV SCH (08:10)
[2023-02-27] MEDS ORDERED: meperidine/PF 25mg/ml syringe IV PRN ×3 (08:10)
[2023-02-27] MEDS ORDERED: proCHLORperazine 10 MG/2 ml inj IV PRN (08:10)
[2023-02-27] MEDS ORDERED: morphine 4 MG/ML inj SYRINge IV PRN (08:10)
[2023-02-27] MEDS ORDERED: LIDOcaine 2% (20mg/ml) 5ml vial ONE (08:28)
[2023-02-27] MEDS ORDERED: propofol inj 20 ML IV ONE (08:28)
[2023-02-27] MEDS ORDERED: dexamethasone sod phosphate 4mg/ml inj. ONE (09:19)
[2023-02-27] MEDS ORDERED: ketorolac trometh. 30mg/ml inj. ONE (09:26)
--- NOTE | 2023-02-27 09:34 | NUR ---
Received from OR via BED, accompanied by Anesthesiologist DR CARDOZA and report given by Anesthesiologist AND VEGETABLE LOADER. PT DROWSY, NO S/S OF DISTRESS/DISCOMFORT. RIGHT ARM FROM ABOUVE ELBOW TO TIPS OF FINGERS W/KRISTIAN WRAP COVERING INCISION/DRSG/SPLINT CDI. FINGERS PWD, PIT MANAGER 1-2 SECONDS. Addendum: 02/27/23 at 0958 by Camille Martin RN Amended: Links added.
[2023-02-27] MEDS ORDERED: HYDROcodone/acetaminophen 10/325mg tab PO PRN (09:40)
[2023-02-27] MEDS ORDERED: diphenhydrAMINE 25mg capsule PO PRN (09:40)
[2023-02-27] MEDS ORDERED: naloxone 0.4 mg/ml inj IV PRN (09:40)
[2023-02-27] MEDS ORDERED: acetaminophen 325mg tablet PO PRN (09:40)
[2023-02-27] MEDS: vancomycin/NS 1 GM ADD-VANTAGE 250 ML IV SCH (11:49)
--- NOTE | 2023-02-27 13:30 | NUR ---
Patient in room ORTHO 4024. I have received report from Camille Lezama in recovery and had the opportunity to ask questions and assume patient care.
--- NOTE | 2023-02-27 14:15 | NUR ---
PT SOMNOLENT, UNABLE TO AROUSE, DR CARDOZA CALLED AND CAME IN TO ASSESS PT, SHE OPENS EYES TO STERNAL RUB, BUT DOESN'T FOLLOW COMMANDS, .04MG NARCAN GIVEN PER ORDERS, AFTER A COUPLE OF MINUTES PT AWAKENED AND CRYING SHE IS IN PAIN, SHE FOLLOWS COMMANDS, BUT FALLS BACK ASLEEP QUICKLY, AWAKENS TO NAME. AFTER 20 MINUTES OR SO PT UP W/ASSIST TO BSC FOR VOID. PT C/O PAIN, BUT FALLS BACK ASLEEP. HOSPITALIST IN TO SEE PT. BREATHING TX GIVEN, REPORT CALLED TO RECEIVING RN Addendum: 02/27/23 at 1548 by Camille Martin RN Amended: Links added.
[2023-02-27] MEDS ORDERED: naloxone 0.4 mg/ml inj IV ONE (14:20)
[2023-02-27] MEDS ORDERED: DICLOFENAC SODIUM 1% gel 1 APPLIC APPLIC TP PRN (14:35)
[2023-02-27] MEDS ORDERED: albuterol 2.5 MG/3 ML nebule NEB PRN (14:35)
[2023-02-27] MEDS ORDERED: Azelastine/Fluticasone (Dymista Nasal Spray) NS PRN (14:35)
--- NOTE | 2023-02-27 15:13 | NUR ---
Report called to receiving nurse. Transferred via BED W/ 1 BAG OF Belongings AND SEATED WALKER TO ROOM 4024B. BLL, CALL LIGHT GIVEN, SIDE RAILS UP X 2. PT REMAINS SLEEPY AND C/O PAIN TO RIGHT ARM BUT SHORTLY AFTER FALLS ASLEEP. RECEIVING RN NOTIFIED OF PTS ARRIVAL. Special Issues communicated to receiving nurse. YES. Addendum: 02/27/23 at 1617 by Camille Martin RN Amended: Links added.
[2023-02-27] MEDS ORDERED: ondansetron 4mg rapidly disintigrating tab PO PRN (15:15)
[2023-02-27] MEDS ORDERED: meclizine 12.5mg tablet PO PRN (15:15)
--- NOTE | 2023-02-27 15:33 | NUR ---
Patient still haven't came up to the ortho/neuro floor. I called recovery and per Camille patient was very lethargic and sleep. Patient received Narcan. Patient will come to the floor once stable
--- NOTE | 2023-02-27 16:25 | NUR ---
Physical assessment reviewed with Neda Mcnair RN and Dara SEN.
--- NOTE | 2023-02-27 16:52 | NUR ---
Message: 4024B- Floridalma Pfeiffer Dr. patient: BP is 227/99 and 185/91. Pls advise? TY Comfort [phone]
[2023-02-27] MEDS: cefazolin 2gm/D5W 100mL 100 ML IV SCH (17:33)
[2023-02-27] MEDS ORDERED: hydrALAZINE 20mg/ml inj. IV PRN (17:35)
[2023-02-27] MEDS ORDERED: losartan 50mg tablet PO ONE (17:40)
--- NOTE | 2023-02-27 17:45 | NUR ---
was helping hang iv meds for storage battery charger and dr resident gustafson said he wanted to pt to have Thier 100 mg of cozaar now and then start the night time dose tomorrow night 02/28 since shes getting it early. one time dose put in and night time dose moved. primary hatchery worker and charge notified.
--- NOTE | 2023-02-27 18:00 | NUR ---
I have reviewed and agree with interventions, assessments, and documentation by Comfort Cheng LVN.
--- NOTE | 2023-02-27 18:07 | NUR ---
Problems reprioritized. Patient report given, questions answered & plan of care reviewed with mUa JASMINE.
--- NOTE | 2023-02-27 18:30 | NUR ---
Patient in room ORTHO 4024. I have received report from MCKINLEY Diamond and had the opportunity to ask questions and assume patient care.
[2023-02-27] MEDS: potassium cl 20mEq in 1/2 NS 1,000 ML IV SCH ×2 (18:41→23:00)
[2023-02-27] MEDS: ipratropium/albuterol 3ml nebule NEB SCH (20:30)
[2023-02-27] MEDS: oxcarbazepine 150mg tablet PO SCH (20:59)
[2023-02-27] MEDS: cloNIDine 0.1 mg tablet PO SCH (21:00)
[2023-02-27] MEDS: [UNRECOGNIZED DRUG - OTHER] PO SCH (21:00)
[2023-02-27] MEDS: baclofen 10mg tablet PO SCH (21:00)
[2023-02-27] MEDS: calcium carbonate 500mg tablet PO SCH (21:00)
[2023-02-27] MEDS ORDERED: losartan 50mg tablet PO SCH (21:00)
[2023-02-27] MEDS: docusate sod 100mg capsule PO SCH (21:00)
[2023-02-27] MEDS ORDERED: MELATONIN 12 MG PO SCH (21:00)
[2023-02-27] MEDS ORDERED: non-formulary drug (Ubidecarenone (Co Q-10) 1 CAP) PO SCH (21:00)
[2023-02-27] MEDS ORDERED: MAGNESIUM OXIDE 500 MG PO SCH (21:00)
[2023-02-27] MEDS: OLANZapine 5mg rapidly disint. tablet PO SCH (21:01)
[2023-02-27] MEDS: quetiapine 100mg tablet PO SCH (21:01)
[2023-02-27] MEDS: gabapentin 400mg capsule PO SCH (21:01)
[2023-02-27] MEDS: donepezil 5mg tablet PO SCH (21:01)
[2023-02-27] MEDS: atorvastatin 20mg tablet PO SCH (21:01)
[2023-02-27] MEDS: HYDROcodone/acetaminophen 10/325mg tab PO PRN (22:27)
[2023-02-27] MEDS: ROPINIRole 1mg tablet PO PRN (22:49)
[2023-02-28] VITALS (15 sets, daily range): BP systolic 136–186; BP diastolic 69–98; PULSE 58–68; RESP 14–20; TEMP 97.3–98.1; O2SAT 1–96
[2023-02-28] MEDS: cefazolin 2gm/D5W 100mL 100 ML IV SCH (00:17)
[2023-02-28] MEDS: vancomycin/NS 1 GM ADD-VANTAGE 250 ML IV SCH ×2 (00:50→12:24)
[2023-02-28] MEDS: ipratropium/albuterol 3ml nebule NEB SCH ×4 (02:28→21:01)
[2023-02-28] MEDS: HYDROcodone/acetaminophen 10/325mg tab PO PRN (05:14)
[2023-02-28 06:15] LABS: BASOPHILS # (AUTO) 0.1 X10'3 (0-0.2); BASOPHILS % (AUTO) 0.8 % (0-1); EOSINOPHILS # (AUTO) 0.3 X10'3 (0-0.9); EOSINOPHILS % (AUTO) 3.3 % (0-6); HEMATOCRIT 34.6 % (35.0-45.0); HEMOGLOBIN 11.8 g/dl (12.0-16.0); LYMPHOCYTES # (AUTO) 2.9 X10'3 (1.1-4.8); LYMPHOCYTES % (AUTO) 31.4 % (21-51); MEAN CORPUSCULAR HEMOGLOBIN 30.2 PG (27.0-31.0); MEAN CORPUSCULAR HGB CONC 34.2 g/dL (33.0-36.5); MEAN CORPUSCULAR VOLUME 88.4 FL (78-98); MEAN PLATELET VOLUME 6.3 FL (7.4-10.4); MONOCYTES # (AUTO) 0.7 X10'3 (0-0.9); MONOCYTES % (AUTO) 7.4 % (2-12); NEUTROPHILS # (AUTO) 5.2 X10'3 (1.8-7.7); NEUTROPHILS % (AUTO) 57.1 % (42-75); PLATELET COUNT 473 X10'3 (140-440); RED BLOOD COUNT 3.91 X10'6 (4.20-5.60); RED CELL DISTRIBUTION WIDTH 14.5 % (11.5-14.5); WHITE BLOOD COUNT 9.1 X10'3 (4.5-11.0)
[2023-02-28 06:23] LABS: ANION GAP 9 (8-16); CHLORIDE 101 MMOL/L (99-107); MAGNESIUM 1.4 MG/DL (1.5-2.4); PHOSPHORUS 2.9 MG/DL (2.3-4.5); POTASSIUM 3.6 MMOL/L (3.5-5.1); SODIUM 135 MMOL/L (135-145); TOTAL CARBON DIOXIDE 25.3 MMOL/L (24-32)
--- NOTE | 2023-02-28 06:49 | NUR ---
Problems reprioritized. Patient report given, questions answered & plan of care reviewed with MCKINLEY Moyer.
--- NOTE | 2023-02-28 06:50 | NUR ---
Patient in room ORTHO 4024. I have received report from Uma JASMINE and had the opportunity to ask questions and assume patient care.
[2023-02-28] MEDS: oxcarbazepine 150mg tablet PO SCH ×3 (08:00→21:15)
[2023-02-28] MEDS: Fluticasone/Umeclidin/Vilanter (Trelegy Ellipta 100-62.5-25) IH SCH (08:00)
[2023-02-28] MEDS: aspirin 325mg tablet, delayed-release (Ecotrin) PO SCH (09:01)
[2023-02-28] MEDS: docusate sod 100mg capsule PO SCH ×2 (09:01→21:13)
[2023-02-28] MEDS: gabapentin 400mg capsule PO SCH ×3 (09:01→21:13)
[2023-02-28] MEDS: baclofen 10mg tablet PO SCH ×3 (09:01→21:13)
[2023-02-28] MEDS: cloNIDine 0.1 mg tablet PO SCH ×3 (09:02→21:14)
[2023-02-28] MEDS: ascorbic acid 500mg tablet PO SCH (09:02)
[2023-02-28] MEDS: cholecalciferol (vitamin D3) 1,000 unit (25mcg) tablet PO SCH (09:02)
[2023-02-28] MEDS: multivitamins, therapeutics tablet PO SCH (09:02)
[2023-02-28] MEDS: amLODIPine 5mg tablet PO SCH (09:28)
[2023-02-28] MEDS: potassium cl 20mEq in 1/2 NS 1,000 ML IV SCH ×2 (10:39→22:35)
[2023-02-28 11:37] LABS: BLOOD UREA NITROGEN 14 MG/DL (7-18); CREATININE 0.62 MG/DL (0.40-0.90); eCRCL 60 ML/MIN; eGFR > 90 ML/MIN
[2023-02-28] MEDS ORDERED: magnesium 4gm in 100ml NS 100 ML IV PRN (11:55)
[2023-02-28] MEDS ORDERED: magnesium 2GM in 50ml NS 50 ML IV PRN (11:55)
[2023-02-28] MEDS ORDERED: potassium Cl 40MEQ/1/2NS 520ml 520 ML IV PRN (11:55)
[2023-02-28] MEDS ORDERED: potassium Cl 20 mEq SR tablet PO PRN ×2 (11:55)
[2023-02-28] MEDS: magnesium Cl slow-release 64mg tablet PO PRN ×2 (16:07→22:10)
--- NOTE | 2023-02-28 18:00 | NUR ---
I have reviewed and agree with interventions, assessments, and documentation by Comfort Cheng LVN.
--- NOTE | 2023-02-28 18:19 | NUR ---
Problems reprioritized. Patient report given, questions answered & plan of care reviewed with Uma JASMINE.
--- NOTE | 2023-02-28 18:30 | NUR ---
Patient in room ORTHO 4024. I have received report from MCKINLEY Moyer and had the opportunity to ask questions and assume patient care.
[2023-02-28] MEDS: K and/or MAG REPLACEMENT MC SCH (20:00)
[2023-02-28] MEDS: [UNRECOGNIZED DRUG - OTHER] PO SCH (21:00)
[2023-02-28] MEDS: calcium carbonate 500mg tablet PO SCH (21:13)
[2023-02-28] MEDS: donepezil 5mg tablet PO SCH (21:13)
[2023-02-28] MEDS: losartan 50mg tablet PO SCH (21:14)
[2023-02-28] MEDS: quetiapine 100mg tablet PO SCH (21:14)
[2023-02-28] MEDS: OLANZapine 5mg rapidly disint. tablet PO SCH (21:15)
[2023-02-28] MEDS: atorvastatin 20mg tablet PO SCH (21:15)
[2023-02-28] MEDS: ROPINIRole 1mg tablet PO PRN (22:10)
[2023-02-28] MEDS ORDERED: VANCOMYCIN LEVEL IV ONE (23:30)
[2023-03-01] VITALS (14 sets, daily range): BP systolic 160–171; BP diastolic 79–98; PULSE 56–99; RESP 15–20; TEMP 97.1–98.4; O2SAT 91–96
[2023-03-01] MEDS: vancomycin/NS 1 GM ADD-VANTAGE 250 ML IV SCH ×3 (00:25→23:59)
[2023-03-01] MEDS: HYDROcodone/acetaminophen 10/325mg tab PO PRN ×2 (01:01→22:21)
[2023-03-01] MEDS: ipratropium/albuterol 3ml nebule NEB SCH ×4 (03:27→20:07)
--- NOTE | 2023-03-01 06:30 | NUR ---
Problems reprioritized. Patient report given, questions answered & plan of care reviewed with KENROY Daniel.
--- NOTE | 2023-03-01 06:30 | NUR ---
Patient in room ORTHO 4024. I have received report from Uma JASMINE and had the opportunity to ask questions and assume patient care.
[2023-03-01 06:32] LABS: BASOPHILS # (AUTO) 0.1 X10'3 (0-0.2); BASOPHILS % (AUTO) 0.7 % (0-1); EOSINOPHILS # (AUTO) 0.3 X10'3 (0-0.9); EOSINOPHILS % (AUTO) 3.8 % (0-6); HEMATOCRIT 33.3 % (35.0-45.0); HEMOGLOBIN 11.4 g/dl (12.0-16.0); MEAN CORPUSCULAR HEMOGLOBIN 30.2 PG (27.0-31.0); MEAN CORPUSCULAR HGB CONC 34.2 g/dL (33.0-36.5); MEAN CORPUSCULAR VOLUME 88.2 FL (78-98); MEAN PLATELET VOLUME 6.4 FL (7.4-10.4); MONOCYTES # (AUTO) 0.7 X10'3 (0-0.9); MONOCYTES % (AUTO) 7.4 % (2-12); NEUTROPHILS # (AUTO) 5.8 X10'3 (1.8-7.7); NEUTROPHILS % (AUTO) 65.1 % (42-75); PLATELET COUNT 433 X10'3 (140-440); RED BLOOD COUNT 3.78 X10'6 (4.20-5.60); RED CELL DISTRIBUTION WIDTH 14.4 % (11.5-14.5); WHITE BLOOD COUNT 8.9 X10'3 (4.5-11.0)
[2023-03-01] MEDS: K and/or MAG REPLACEMENT MC SCH ×2 (07:33→19:04)
[2023-03-01] MEDS: Fluticasone/Umeclidin/Vilanter (Trelegy Ellipta 100-62.5-25) IH SCH (08:00)
[2023-03-01] MEDS: oxcarbazepine 150mg tablet PO SCH ×3 (08:43→21:00)
[2023-03-01] MEDS: aspirin 325mg tablet, delayed-release (Ecotrin) PO SCH (08:43)
[2023-03-01] MEDS: docusate sod 100mg capsule PO SCH ×2 (08:43→20:59)
[2023-03-01] MEDS: baclofen 10mg tablet PO SCH ×3 (08:43→21:00)
[2023-03-01] MEDS: gabapentin 400mg capsule PO SCH ×3 (08:43→21:00)
[2023-03-01] MEDS: amLODIPine 5mg tablet PO SCH (08:46)
[2023-03-01] MEDS: ascorbic acid 500mg tablet PO SCH (08:47)
[2023-03-01] MEDS: cloNIDine 0.1 mg tablet PO SCH ×3 (08:47→21:00)
[2023-03-01] MEDS: multivitamins, therapeutics tablet PO SCH (08:47)
[2023-03-01] MEDS: cholecalciferol (vitamin D3) 1,000 unit (25mcg) tablet PO SCH (08:47)
[2023-03-01] MEDS: calcium carbonate 500mg tablet PO SCH (20:59)
[2023-03-01] MEDS: quetiapine 100mg tablet PO SCH (20:59)
[2023-03-01] MEDS: donepezil 5mg tablet PO SCH (20:59)
[2023-03-01] MEDS: [UNRECOGNIZED DRUG - OTHER] PO SCH (21:00)
[2023-03-01] MEDS: OLANZapine 5mg rapidly disint. tablet PO SCH (21:01)
[2023-03-01] MEDS: atorvastatin 20mg tablet PO SCH (21:01)
[2023-03-01] MEDS: losartan 50mg tablet PO SCH (21:04)
[2023-03-01] MEDS: ROPINIRole 1mg tablet PO PRN (21:42)
[2023-03-02] VITALS (8 sets, daily range): BP systolic 160; BP diastolic 65–75; PULSE 62–74; RESP 14–16; TEMP 97.3–98; O2SAT 93–97
[2023-03-02] MEDS: ipratropium/albuterol 3ml nebule NEB SCH ×2 (02:44→09:22)
[2023-03-02 05:46] LABS: BASOPHILS # (AUTO) 0.1 X10'3 (0-0.2); BASOPHILS % (AUTO) 0.5 % (0-1); EOSINOPHILS # (AUTO) 0.4 X10'3 (0-0.9); EOSINOPHILS % (AUTO) 4.7 % (0-6); HEMATOCRIT 34.5 % (35.0-45.0); HEMOGLOBIN 11.7 g/dl (12.0-16.0); LYMPHOCYTES # (AUTO) 2.1 X10'3 (1.1-4.8); LYMPHOCYTES % (AUTO) 22.2 % (21-51); MEAN CORPUSCULAR HEMOGLOBIN 29.7 PG (27.0-31.0); MEAN CORPUSCULAR HGB CONC 33.8 g/dL (33.0-36.5); MEAN CORPUSCULAR VOLUME 87.7 FL (78-98); MEAN PLATELET VOLUME 6.2 FL (7.4-10.4); MONOCYTES # (AUTO) 0.9 X10'3 (0-0.9); MONOCYTES % (AUTO) 9.7 % (2-12); NEUTROPHILS # (AUTO) 5.9 X10'3 (1.8-7.7); NEUTROPHILS % (AUTO) 62.9 % (42-75); PLATELET COUNT 407 X10'3 (140-440); RED BLOOD COUNT 3.94 X10'6 (4.20-5.60); RED CELL DISTRIBUTION WIDTH 14.1 % (11.5-14.5); WHITE BLOOD COUNT 9.3 X10'3 (4.5-11.0)
--- NOTE | 2023-03-02 07:00 | NUR ---
Patient in room ORTHO 4024. I have received report from KENROY GUTIERREZ and had the opportunity to ask questions and assume patient care.
[2023-03-02] MEDS ORDERED: naloxone 0.4 mg/ml inj ONE (07:45)
[2023-03-02] MEDS: Fluticasone/Umeclidin/Vilanter (Trelegy Ellipta 100-62.5-25) IH SCH (08:00)
[2023-03-02] MEDS: K and/or MAG REPLACEMENT MC SCH (08:00)
[2023-03-02] MEDS: oxcarbazepine 150mg tablet PO SCH ×2 (09:29→12:31)
[2023-03-02] MEDS: gabapentin 400mg capsule PO SCH ×2 (09:30→12:30)
[2023-03-02] MEDS: multivitamins, therapeutics tablet PO SCH (09:30)
[2023-03-02] MEDS: docusate sod 100mg capsule PO SCH (09:31)
[2023-03-02] MEDS: ascorbic acid 500mg tablet PO SCH (09:31)
[2023-03-02] MEDS: cholecalciferol (vitamin D3) 1,000 unit (25mcg) tablet PO SCH (09:32)
[2023-03-02] MEDS: aspirin 325mg tablet, delayed-release (Ecotrin) PO SCH (09:33)
[2023-03-02] MEDS: cloNIDine 0.1 mg tablet PO SCH ×2 (09:35→12:30)
[2023-03-02] MEDS: amLODIPine 5mg tablet PO SCH (09:35)
[2023-03-02] MEDS: baclofen 10mg tablet PO SCH ×2 (09:36→12:30)
[2023-03-02] MEDS: vancomycin/NS 1 GM ADD-VANTAGE 250 ML IV SCH (12:30)
--- NOTE | 2023-03-02 15:10 | NUR ---
pt given discharge packet and was able to discuss/answer any questions about discharge. Pt was wheelchaired down to the lobby with all of her belongings and left in a private vehicle with her . Pt was in stable condition and in no distress
== END 2023-03-02 15:10 | disposition home or self-care (01) | DRG 502 ==
LOC: PAS 06:10 → OBSVTOIN 09:49 → ORTHO 4S 09:49
PROVIDERS: ADMIT Specialist; ATTEND Specialist
PROC: 0PBK0ZZ Excision of Right Ulna, Open Approach (ICD-10-PCS; 2023-02-27)
PROC: 0MB30ZZ Excision of Right Elbow Bursa and Ligament, Open Approach (ICD-10-PCS; principal; 2023-02-27 08:00)
PROC: 02HV33Z Insertion of Infusion Device into Superior Vena Cava, Percutaneous Approach (ICD-10-PCS; 2023-02-28)
PROC: B548ZZA Ultrasonography of Superior Vena Cava, Guidance (ICD-10-PCS; 2023-02-28)
DX: M71.021 Abscess of bursa, right elbow (principal); F17.200 Nicotine dependence, unspecified, uncomplicated; J44.9 Chronic obstructive pulmonary disease, unspecified; I10 Essential (primary) hypertension; E78.5 Hyperlipidemia, unspecified; F32.A Depression, unspecified; F17.210 Nicotine dependence, cigarettes, uncomplicated; F03.90 Unspecified dementia, unspecified severity, without behavioral disturbance, psychotic disturbance, mood disturbance, and anxiety; G89.4 Chronic pain syndrome; R42 Dizziness and giddiness; M54.9 Dorsalgia, unspecified; G25.81 Restless legs syndrome; Z88.5 Allergy status to narcotic agent; Z88.8 Allergy status to other drugs, medicaments and biological substances; Z79.899 Other long term (current) drug therapy; Z82.49 Family history of ischemic heart disease and other diseases of the circulatory system; Z83.3 Family history of diabetes mellitus; Z80.9 Family history of malignant neoplasm, unspecified; Z71.6 Tobacco abuse counseling
CPT/HCPCS: 36415; 36569; 76942; 80051; 80053; 80202; 81001; 82565; 82948; 83735; 84100; 84132; 84520; 85025; 85610; 85651; 85730; 86140; 87070; 87075; 87077; 87081; 87186; 94640; 94760; 97161; 97530; A4215; A4615; A4618; A6253; A6258; A6449; A6455; A7000; C1751; G0378; J0690; J1100; J1885; J2250; J2310; J2704; J3010; J3370; J3480; J3490; J7120

== ENCOUNTER 2024-10-14 14:46 | Outpatient (CLI) | payer MEDICARE, BC ==
[~2024-10-14 14:46] MED LIST changes: -DOXY150T5 PO; +ONDA-243 PO; -ONDA4TAB12 PO; -ROSU20TA73 PO; +ROSU20TA98 PO; -SULF1TAB45 PO; -albuterol 2.5 MG/3 ML nebule NEB ONE; -cefazolin 2gm/D5W 100mL 100 ML IV ONE; -famotidine 20mg tablet PO ONE; -ringers solution, lacted 1,000 ML IV SCH
== END 2024-10-14 23:59 | disposition home or self-care (01) ==
LOC: MRI 14:46
PROVIDERS: ATTEND Nurse Practitioner Adult Health
DX: S32.020A Wedge compression fracture of second lumbar vertebra, initial encounter for closed fracture (principal); M51.17 Intervertebral disc disorders with radiculopathy, lumbosacral region; S32.010A Wedge compression fracture of first lumbar vertebra, initial encounter for closed fracture; M54.50 Low back pain, unspecified; Z98.890 Other specified postprocedural states; M48.061 Spinal stenosis, lumbar region without neurogenic claudication; M47.27 Other spondylosis with radiculopathy, lumbosacral region; M47.816 Spondylosis without myelopathy or radiculopathy, lumbar region; M48.07 Spinal stenosis, lumbosacral region; X58.XXXA Exposure to other specified factors, initial encounter; Y93.89 Activity, other specified; Y92.89 Other specified places as the place of occurrence of the external cause; Y99.8 Other external cause status
CPT/HCPCS: 72128; 72148

== ENCOUNTER 2024-11-18 15:17 | Emergency (ER) | payer MEDICARE, BC ==
[~2024-11-18] VITALS: Ht 149.9 cm; Wt 63.6 kg
[2024-11-18 16:45] LABS: BASOPHILS # (AUTO) 0.1 X10'3 (0-0.2); EOSINOPHILS # (AUTO) 0.5 X10'3 (0-0.9); MONOCYTES # (AUTO) 0.5 X10'3 (0-0.9); MONOCYTES % (AUTO) 5.9 % (2-12); WHITE BLOOD COUNT 8.9 X10'3 (4.5-11.0)
[2024-11-18 16:48] LABS: BASOPHILS % (AUTO) 0.9 % (0-1); EOSINOPHILS % (AUTO) 5.4 % (0-6); HEMATOCRIT 36.3 % (35.0-45.0); HEMOGLOBIN 12.4 g/dl (12.0-16.0); LYMPHOCYTES # (AUTO) 1.8 X10'3 (1.1-4.8); LYMPHOCYTES % (AUTO) 19.9 % (21-51); MEAN CORPUSCULAR HGB CONC 34.1 g/dL (33.0-36.5); NEUTROPHILS % (AUTO) 67.9 % (42-75); PLATELET COUNT 300 X10'3 (140-440); RED BLOOD COUNT 4.27 X10'6 (4.20-5.60); RED CELL DISTRIBUTION WIDTH 16.1 % (11.5-14.5)
[2024-11-18 17:14] LABS: ALANINE AMINOTRANSFERASE 20 U/L (12-78); ALBUMIN 3.2 G/DL (3.4-5.0); ALBUMIN/GLOBULIN RATIO 0.9 (1.1-1.5); ALKALINE PHOSPHATASE 140 IU/L (46-116); ANION GAP 8 (8-16); ASPARTATE AMINO TRANSFERASE 16 U/L (10-37); BILIRUBIN,TOTAL 0.3 MG/DL (0.1-1.0); BLOOD UREA NITROGEN 14 MG/DL (7-18); BUN/CREATININE RATIO 17.3 (10.0-20.0); CALCIUM 9.7 MG/DL (8.5-10.1); CHLORIDE 103 MMOL/L (99-107); CREATININE 0.81 MG/DL (0.40-0.90); GLUCOSE 102 MG/DL (70-104); POTASSIUM 3.6 MMOL/L (3.5-5.1); SODIUM 140 MMOL/L (135-145); TOTAL CARBON DIOXIDE 29.4 MMOL/L (24-32); TOTAL PROTEIN 6.7 G/DL (6.4-8.2); eCRCL 45 ML/MIN; eGFR 70 ML/MIN
--- NOTE | 2024-11-18 18:53 | Physician Documentation ---
History of Present Illness ~ Chief Complaint: Abnormal Lab(s) Stated Complaint: POSS SPINE INFECTION/METAL ZOILA IN SPINE Time Seen by MD: 18:26 Primary Medical Doctor: Dr Celine Ramos HPI 69-year-old female presents to the ED with a complaint of abnormal lab values. She is not sure which values are abnormal. She says she was advised to come to the ED to be evaluated for an infection in her back as she has had a previous spinal surgery. Patient any fevers denies any changes in symptoms denies any nausea vomiting diarrhea or any other associated symptoms. Denies numbness tingling incontinence any other red flag symptoms Day of Onset: November 18, 2024 Medication Reconciliation Allergies: Coded Allergies: KRISTIAN Inhibitors (Unverified Allergy, Severe, LIPS SWELL/ANAPHYLAXIS, 03/05/19) morphine (Verified Adverse Reaction, Mild, NAUSEA/VOMIT, 03/05/19) Scheduled Acetaminophen (Tylenol), 1,000 MG PO TID, (Reported) Amlodipine Besylate (Amlodipine Besylate), 10 MG PO DAILY, (Reported) Ascorbic Acid (Vitamin C), 1 CAP PO DAILY, (Reported) Aspirin (Ecotrin), 1 TAB PO DAILY, (Reported) Baclofen (Baclofen), 1 TAB PO TID, (Reported) Calcium Carbonate (Calcium), 1 TAB PO HS, (Reported) Clonidine HCl (Clonidine HCl), 1 TAB PO TID, (Reported) Docusate Sodium (Docusate Sodium), 1 CAP PO Q12H, (Reported) Donepezil Hcl (Donepezil Hcl), 10 MG PO HS, (Reported) Ergocalciferol (Vitamin D), 50 MCG PO DAILY, (Reported) Fluticasone/Umeclidin/Vilanter (Trelegy Ellipta 100-62.5-25), 1 PUFF INH DAILY, (Reported) Gabapentin (Gabapentin), 1 CAP PO TID, (Reported) Hydrocodone Bit/Acetaminophen (Hydrocodon-Acetaminophn 10-325 tablet), 1 TAB PO Q12H PRN, (Reported) Losartan Potassium (Losartan Potassium), 100 MG PO HS, (Reported) Magnesium Oxide (Magnesium), 500 MG PO HS, (Reported) Melatonin (Melatonin), 12 MG PO HS, (Reported) Meloxicam (Meloxicam), 1 TAB PO DAILY, (Reported) Multivitamin (Multi Vitamin Daily), 1 TAB PO DAILY, (Reported) Olanzapine (Olanzapine), 1 TAB PO HS, (Reported) Oxcarbazepine (Oxcarbazepine), 1 TAB PO TID, (Reported) Quetiapine Fumarate (Seroquel), 1-3 TAB PO HS, (Reported) Rosuvastatin Calcium (Rosuvastatin Calcium), 1 TAB PO HS, (Reported) Ubidecarenone (Co Q-10), 1 CAP PO HS, (Reported) [Calypta], 42 MG PO HS, (Reported) Scheduled PRN Albuterol Sulfate (Ventolin Hfa), 2 PUFFS INH Q4HPRN PRN for SOB or wheezing, (Reported) Azelastine/Fluticasone (Dymista Nasal [place]), 4 SPRAYS BOTHNARES Q12H PRN for allergies, (Reported) Diclofenac Sodium (Voltaren Arthritis Pain), 1 APPLIC TOP Q6H PRN for p, (Reported) Meclizine HCl (Meclizine HCl), 1 TAB PO BID PRN for dizziness/vertigo, (Reported) ONDANSETRON ODT 4mg tablet (Ondansetron Odt), 4 MG PO BID PRN for nausea/vomiting, (Reported) Ropinirole HCl (Requip), 5-10 MG PO HS PRN for RESTLESS LEG SYNDROMME, (Reported) Tramadol HCl (Tramadol HCl), 1 TABLET PO 5XD PRN for pain, (Reported) [Marijuana], 1 PUFF INH PRN PRN for agitation, (Reported) Past Medical History Past Medical History: Peripheral Neuropathy, Hypertension, COPD, Diabetes, Chronic Back Pain Past Surgical History: noncontributory Patient History: FH: cancer MOTHER FHx: congestive heart failure FATHER FHx: diabetes mellitus FATHER Alcohol Use: Sober Drug Use: none, marijuana Review of Systems All Other Systems at this time: Reviewed and Negative ROS As stated above in the HPI, otherwise all systems are reviewed and negative. Physical Exam Physical Exam Vital Signs: Temperature: 98.1, Heart Rate: 57, Respiratory Rate: 15, BP: 147/88, Pulse Oximetry: 97, Weight: 63.640 Oxygen Flow Rate: 0 Physical Exam General: Alert, no apparent distress. back: 5 cm bump on the thoracic region. Evidence of post surgical interventions, no erythema Respiratory: Lungs clear, no respiratory distress. Cardiovascular: Regular rate and rhythm, no murmurs. Gastrointestinal: Soft, nontender, nondistended. Bowels sounds present. Neurologic: Oriented x4. Psychiatric: Normal mood and affect. Skin: Normal color, warm and dry. No edema, no ecchymosis. Progress Results/Orders Results/Orders Completed Orders - MARY ANN LACY OPERATIONS SYSTEMS SPECIALIST Cbc/Diff (11/18/24 15:29) CMP (11/18/24 15:29) Hydrocodone/Apap 10/325 (Steptoe 10/325mg (11/18/24 18:55) Medications Received in ER Medications (Trade) Dose Ordered Sig/Freddie Route PRN Reason Start Time Stop Time Status Last Admin Dose Admin (Steptoe 10/325mg tab) 1 tab ONCE ONCE PO 11/18/24 18:55 11/18/24 18:56 DC 11/18/24 19:02 1 TAB Vital Signs 11/18/24 11/18/24 15:23 18:58 Temp 98.1 98.1 Pulse 57 57 Resp 15 16 B/P (MAP) 147/88 163/92 (115) Pulse Ox 97 100 O2 Flow Rate 0 0 Laboratory Tests Test 11/18/24 16:17 White Blood Count 8.9 Red Blood Count 4.27 Hemoglobin 12.4 Hematocrit 36.3 Mean Corpuscular Volume 85.0 Mean Corpuscular Hemoglobin 29.0 Mean Corpuscular Hemoglobin Concent 34.1 Red Cell Distribution Width 16.1 H Platelet Count 300 Mean Platelet Volume 7.0 L Neutrophils (%) (Auto) 67.9 Lymphocytes (%) (Auto) 19.9 L Monocytes (%) (Auto) 5.9 Eosinophils (%) (Auto) 5.4 Basophils (%) (Auto) 0.9 Neutrophils # (Auto) 6.0 Lymphocytes # (Auto) 1.8 Monocytes # (Auto) 0.5 Eosinophils # (Auto) 0.5 Basophils # (Auto) 0.1 CBC Comment Sodium Level 140 Potassium Level 3.6 Chloride Level 103 Carbon Dioxide Level 29.4 Anion Gap 8 Blood Urea Nitrogen 14 Creatinine 0.81 Estimated GFR/1.73 m2 70 BUN/Creatinine Ratio 17.3 Glucose Level 102 Calcium Level 9.7 Total Bilirubin 0.3 Aspartate Amino Transf (AST/SGOT) 16 Alanine Aminotransferase (ALT/SGPT) 20 Alkaline Phosphatase 140 H Total Protein 6.7 Albumin 3.2 L Globulin 3.5 Albumin/Globulin Ratio 0.9 L Chemistry Comments Medical Decision Making Findings I spoke to this patient about what she is expecting to achieve by coming to the ED today. She states that she was sent here out of concern of an infection however her laboratory results are unremarkable. She stated that her symptoms have not changed. sHe is requesting a pain pill for the ride home Differential Dx:Considerations: Include: AAA, Aortic dissection, , Appendicitis, Bowel obstruction, Cholelithiasis, Cholangitis, DJD, Ectopic , Fracture, Hepatitis, HNP, Musculoskeletal pain, Pancreatitis, Pyelonephritis, Strain, Urinary obstruction, Urolithiasis, Ovarian torsion, Other Departure Disposition: 01 HOME / SELF CARE / HOMELESS Impression: Primary Impression: Abnormal laboratory test result Condition: Stable Discharge Instructions: Acute Back Pain, Adult Referrals: NO PRIMARY CARE PROVIDER (PCP) Signature Scribe Signature: t Attestation: The note accurately reflects work and decisions made by me.Mary Ann Lacy - VIRIDIANA 11/18/24 23:56 MARY ANN LACY NP November 18, 2024 18:53
[2024-11-18 18:58] VITALS: BP 163/92; PULSE 57; RESP 16; TEMP 98.1; O2SAT 100
[2024-11-18] MEDS: HYDROcodone/acetaminophen 10/325mg tab PO ONE (19:02)
== END 2024-11-18 19:07 | disposition home or self-care (01) ==
LOC: ER 15:17
DX: R79.9 Abnormal finding of blood chemistry, unspecified (principal); E11.42 Type 2 diabetes mellitus with diabetic polyneuropathy; I10 Essential (primary) hypertension; J44.9 Chronic obstructive pulmonary disease, unspecified; Z88.5 Allergy status to narcotic agent; Z88.8 Allergy status to other drugs, medicaments and biological substances
CPT/HCPCS: 36415; 80053; 85025; 99283

== ENCOUNTER 2024-11-28 08:00 | Outpatient (CLI) | payer MEDICARE, BC ==
[~2024-11-28] VITALS: Ht 149.9 cm; Wt 63.5 kg
[2024-11-28 15:12] LABS: BILIRUBIN,URINE NEGATIVE (Neg); CLARITY,URINE SLIGHTLY CLOUDY (Clear); COLOR,URINE YELLOW (Yellow); GLUCOSE, URINE NEGATIVE (Neg); KETONES,URINE 15 mg/dl (Neg); LEUKOCYTE ESTERASE ,URINE TRACE (Neg); NITRITES, URINE NEGATIVE (Neg); OCCULT BLOOD,URINE NEGATIVE (Neg); PROTEIN,URINE 100 mg/dl (Neg); UROBILINOGEN,URINE 0.2 E.U/dL (0.2-1.0)
[2024-11-28 15:21] LABS: BASOPHILS # (AUTO) 0.1 X10'3 (0-0.2); EOSINOPHILS # (AUTO) 0.6 X10'3 (0-0.9); MEAN CORPUSCULAR HGB CONC 33.3 g/dL (33.0-36.5); MEAN PLATELET VOLUME 6.5 FL (7.4-10.4); MONOCYTES # (AUTO) 0.3 X10'3 (0-0.9); NEUTROPHILS # (AUTO) 3.4 X10'3 (1.8-7.7); PRE OP WHITE BLOOD COUNT 6.3 10'3 (4.8-10.8); RED CELL DISTRIBUTION WIDTH 17.6 % (11.5-14.5)
[2024-11-28 15:23] LABS: BASOPHILS % (AUTO) 2.1 % (0-1); EOSINOPHILS % (AUTO) 9.7 % (0-6); LYMPHOCYTES # (AUTO) 1.9 X10'3 (1.1-4.8); LYMPHOCYTES % (AUTO) 30.4 % (21-51); MEAN CORPUSCULAR HEMOGLOBIN 28.6 PG (27.0-31.0); MEAN CORPUSCULAR VOLUME 85.8 FL (78-98); NEUTROPHILS % (AUTO) 52.8 % (42-75); PRE OP HEMATOCRIT 38.4 % (35.0-45.0); PRE OP HEMOGLOBIN 12.8 g/dL (12.0-16.0); PRE OP PLATELET COUNT 451 X10'3 (140-440); RED BLOOD COUNT 4.47 X10'6 (4.20-5.60)
[2024-11-28 15:27] LABS: ALBUMIN 3.3 G/DL (3.4-5.0); ALKALINE PHOSPHATASE 127 IU/L (46-116); BLOOD UREA NITROGEN 19 MG/DL (7-18); BUN/CREATININE RATIO 18.8 (10.0-20.0); CALCIUM 10.2 MG/DL (8.5-10.1); CHLORIDE 102 MMOL/L (99-107); CREATININE 1.01 MG/DL (0.40-0.90); PRE OP ALT 23 U/L (30-65); PRE OP ANION GAP 10 (8-16); PRE OP AST 19 U/L (10-37); PRE OP BILIRUB, TOTAL 0.2 MG/DL (0.0-1.0); PRE OP GLUCOSE 78 MG/DL (70-104); PRE OP POTASSIUM 4.2 MMOL/L (3.4-5.1); PRE OP SODIUM 138 MMOL/L (135-145); TOTAL CARBON DIOXIDE 26.5 MMOL/L (24-32); TOTAL PROTEIN 6.7 G/DL (6.4-8.2); eGFR 54 ML/MIN
[2024-11-28 15:31] LABS: HYALINE CASTS >30 /LPF (NEGATIVE); MUCUS STRANDS FEW /LPF (Neg); SQUAMOUS EPITHELIAL CELL,UR MANY /LPF (FEW); UA COLLECTION TYPE NON-SPECIFIED
[2024-11-28 15:32] LABS: BACTERIA,URINE FEW /HPF (Neg); RBC,URINE 0-2 /HPF (0-2); TRANSITIONAL EPI CELLS,URINE FEW /HPF
[2024-11-28] MEDS ORDERED: TOPI25CA7 PO (15:38)
[2024-11-28] MEDS ORDERED: DULO30CA52 PO (15:38)
[2024-11-28] MEDS ORDERED: ALPH600C8 PO (15:38)
[2024-11-28] MEDS ORDERED: SUCR1TAB PO (15:38)
[2024-12-04] MEDS ORDERED: ceFAZolin 2gm/dext,iso 50mL 50 ML IV ONE (05:30)
[2024-12-04] MEDS ORDERED: ringers solution, lacted 1,000 ML IV SCH (05:30)
[2024-12-04] MEDS ORDERED: famotidine 20mg tablet PO ONE (05:30)
== END 2024-11-28 23:00 | disposition home or self-care (01) ==
LOC: LAB 08:00 → EDSTATUS 12-04 07:30
PROVIDERS: ATTEND Podiatrist Foot & Ankle Surgery
DX: Z01.818 Encounter for other preprocedural examination (principal); M77.42 Metatarsalgia, left foot; M25.375 Other instability, left foot; M20.42 Other hammer toe(s) (acquired), left foot; I10 Essential (primary) hypertension; Z98.890 Other specified postprocedural states; F41.9 Anxiety disorder, unspecified; F32.A Depression, unspecified; K21.9 Gastro-esophageal reflux disease without esophagitis; Z79.899 Other long term (current) drug therapy; Z88.8 Allergy status to other drugs, medicaments and biological substances; Z96.653 Presence of artificial knee joint, bilateral
CPT/HCPCS: 80053; 81001; 85025; J7120